=== PATIENT | male | born 1940 | race Caucasian/White ===

== ENCOUNTER → 2023-10-24 11:36 | Outpatient (REF) | payer MEDICARE, BC, SELFPAY ==
[2023-10-24 15:19] LABS: % Basophils 0.4 % (0-2); % Eosinophils 3.2 % (0-6); % Immature Granulocytes 0.5 % (0-0.5); % Lymphocytes 11.1 % (20.5-51.1); % Monocytes 8.3 % (1.7-9.3); % Neutrophils 76.5 % (42.2-75.2); Absolute Eosinophils 0.3 10^3/uL (0-0.7); Absolute Immature Granulocytes 0.1 10^3/uL (0-0.05); Absolute Lymphocytes 1.1 10^3/uL (1.2-3.4); Absolute Monocytes 0.8 10^3/uL (0.1-0.6); Absolute Neutrophils 7.8 10^3/uL (1.4-6.5); Hematocrit 36.6 % (39.0-52.0); Hemoglobin 12.4 g/dL (13.0-18.0); Mean Corp Hgb Conc. 33.9 g/dL (33.0-37.0); Mean Corpuscular Hgb 32.4 pg (27.0-31.0); Mean Corpuscular Volume 95.6 fL (80.0-94.0); Mean Platelet Volume 10.5 fL (7.4-10.4); Nucleated Red Blood Cells % 0 % (-); Platelet Count 290 10^3/uL (130-400); Red Blood Cell Count 3.83 10^6/uL (4.70-6.10); Red Cell Dist. Width 12.2 % (11.5-14.5); White Blood Cell Count 10.1 10^3/uL (4.8-10.8)
== END ==
LOC: HWLAB 11:36
PROVIDERS: ATTENDING PHYSICIAN Physician Assistant Medical; FAMILY PHYSICIAN Internal Medicine
DX: L08.9 Local infection of the skin and subcutaneous tissue, unspecified (principal); N17.9 Acute kidney failure, unspecified
CPT/HCPCS: 36415; 85025

== ENCOUNTER 2023-11-21 05:31 | Emergency (ER) | payer MEDICARE, BC, SELFPAY ==
[2023-11-21 05:38] VITALS: BP 130/58
--- NOTE | 2023-11-21 06:16 | ED.GENMED ---
History of Present Illness
General
Chief Complaint: Skin Problem
Time Seen by Provider: 11/21/23 06:13
Travel History
Have you had any contact with someone who has COVID-19?: No
Do you have any symptoms of coronavirus? Fever > 100 degrees, chills, cough, shortness of breath, sore throat, loss of taste or smell, muscle aches, or headache?: No
History of Present Illness
History of Present Illness:
HPI: Patient presents due to concerns at the site of spinal stimulator. This was originally placed by a pain management doctor in January 2023. He had some weeping at the site (midline lumbar region) this past May but says he was dismissed by a
'fill-in doctor' for the painter rough. That same doctor saw in September and again 'dismissed it'. He later saw his original physician who placed him on amoxicillin which helped for about a week. He then saw urgent care who placed him
on a 7-day course of doxycycline which helped about a month ago but now symptoms have returned. He denies any fevers.
EXAM:
GENERAL: Well appearing in no distress
HEENT: Moist oral mucosa
CARDIOVASCULAR: No murmurs, normal heart rate and rhythm, No chest wall tenderness
PULMONARY: No respiratory distress, breath sounds are clear and equal
ABDOMEN: Soft with no peritoneal signs, no tenderness
NEUROLOGIC: Excellent strength all extremities, no coordination deficits
PSYCHIATRIC: Appropriate mental status, normal insight and judgement
EXTREMITIES: Nontender, no edema, moves all extremities equally
SKIN: There is a surgical scar to the lumbar region just left of midline with no drainage or evidence of infection. There is a small pustule noted at the midline over the surgical scar with a scant amount of pus noted.
ED COURSE:
6:20 AM: I initially evaluated patient
NUMBER AND COMPLEXITY OF PROBLEMS ADDRESSED AT THE ENCOUNTER
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
� Acute Exacerbation and/or Progression of Chronic Illness: This is an acute but recurring problem
� Differential Diagnosis includes: Abscess, cellulitis,/surgical site infection
AMOUNT AND/OR COMPLEXITY OF DATA TO BE REVIEWED AND ANALYZED
� I performed an independent evaluation of and my interpretation is:
EKG:
CT:
X-rays:
Laboratory Studies: Wound culture was sent
Other:
� Review of other/old records: The patient was here in 2021 with rectal bleeding
� Clinical information was obtained by an independent historian: None needed
� Prescriptions/Medications Considered but not given:
� Further testing considered but not performed:
RISK OF COMPLICATIONS AND/OR MORBIDITY OR MORTALITY OF PATIENT MANAGEMENT
� Social determinants of health affecting care: Lives at home
� Discussion with other providers:
� Escalation of care including admission/observation vs risk of discharge considered: The patient has a relatively small area of infection (subcentimeter pustule) with scant amount of drainage that was able to be expressed. Will
place back on a longer course of doxycycline I encouraged him to follow-up with his original surgeon. I have also given him the contact information for a local infectious disease specialist. Wound culture sent.
Past History
Past History
ED Past Medical History: HTN and Other (diverticulitis)
ED Past Surgical History: Bowel resection and Orthopedic
Social History
Tobacco: Non-smoker
Alcohol: None
Drug: None
Personal:
Living: with family
Employment: Employed
Phy Exam
Physical Exam
Physical Exam:
See HPI
Course
Orders/Labs/Results
Orders:
Orders
11/21/23 06:28
Doxycycline [Vibramycin] 100 mg PO NOW STA
11/21/23 06:30
Wound Culture [Wound/Abscess/Other Culture] Urgent
CELESTE Source: Skin Surface
Specimen Description:
Vital Signs
Initial and Last Documented VS:
Initial Vital Signs
Temp Pulse Resp BP Pulse Ox
97.8 F 72 24 130/58 100
11/21/23 05:38 11/21/23 05:38 11/21/23 05:38 11/21/23 05:38 11/21/23 05:38
Last Documented Vital Signs
Temp Pulse Resp BP Pulse Ox
97.8 F 72 24 130/58 100
11/21/23 05:38 11/21/23 05:38 11/21/23 05:38 11/21/23 05:38 11/21/23 05:38
*Critical Care Note
Total Time (30-74mins, 75-104mins- exclusive of procedures): Not Applicable
ED Attending Note
-
Portions of this chart may have been created with voice recognition software.� Occasional wrong word or��sound alike� substitutions may have occurred due to the inherent limitations of voice recognition software.
Discharge Plan
Departure
Patient Disposition: Home (Routine Discharge)
Date of Disposition: 11/21/23
Time of Disposition: 06:31
Patient with high blood pressure during this ER visit?: Yes
Discharge Problem:
Pustule
Instructions: Skin Abscess
Prescriptions:
New
doxycycline hyclate 100 mg capsule
100 mg PO BID Qty: 28 0RF
No Action
omeprazole 20 MG capsule,delayed release(DR/EC)
20 mg PO DAILY
aspirin 81 MG tablet,delayed release (DR/EC)
81 mg PO DAILY
lorazepam 1 MG tablet
1 mg PO HSPRN PRN (Reason: anxiety/insomnia)
Patient Comments:
10/31/2019 patient filled #[id number] for 90 days on 10/07/2019
diclofenac sodium 75 mg Tablet,Delayed Release (Dr/Ec)
75 mg PO BID
doxazosin 4 mg Tablet
8 mg PO HS
multivitamin Tablet
Daily
nifedipine [Procardia XL] 30 mg Tablet Extended Release 24hr
30 mg PO DAILY
hydrocodone-acetaminophen 7.5-325 mg Tablet
1 tab PO Q6H PRN (Reason: pain)
ferrous [id number] conc Capsule
PO DAILY
Referrals:
Wilmer Blancas MD [Family Provider] -
Zeinab Lee MD [Active] - Follow up in 2-3 days
Activity Restrictions/Additional Instructions:
I recommend you also follow-up with the surgeon who did the initial procedure. I have given you the contact information for local infectious disease specialist�Dr. Lee. I sent a prescription for a 2-week course of doxycycline to your pharmacy in
[place]. Return here if worse.
Interventions
Interventions:
*Risk Screen - Suicide Last Done: 11/21/23 05:38
*Neglect/Abuse Screening Last Done: 11/21/23 05:38
[2023-11-21] MEDS: VIBRAMYCIN 100 MG PO (06:42)
== END 2023-11-21 07:00 | disposition home or self-care (01) ==
LOC: EMR 05:31
PROVIDERS: EMERGENCY PHYSICIAN Emergency Medicine; FAMILY PHYSICIAN Internal Medicine
DX: L08.9 Local infection of the skin and subcutaneous tissue, unspecified (principal); I10 Essential (primary) hypertension
CPT/HCPCS: 99283; 87070; 87205

== ENCOUNTER → 2024-01-10 06:33 | Outpatient (REF) | payer MEDICARE, BC, SELFPAY ==
[2024-01-10 10:02] LABS: % Basophils 0.6 % (0-2); % Eosinophils 2.6 % (0-6); % Immature Granulocytes 0.5 % (0-0.5); % Lymphocytes 16.8 % (20.5-51.1); % Monocytes 7.9 % (1.7-9.3); % Neutrophils 71.6 % (42.2-75.2); Absolute Basophils 0.1 10^3/uL (0-0.2); Absolute Eosinophils 0.2 10^3/uL (0-0.7); Absolute Immature Granulocytes 0.1 10^3/uL (0-0.05); Absolute Lymphocytes 1.6 10^3/uL (1.2-3.4); Absolute Monocytes 0.7 10^3/uL (0.1-0.6); Absolute Neutrophils 6.7 10^3/uL (1.4-6.5); Hematocrit 37.5 % (39.0-52.0); Hemoglobin 12.4 g/dL (13.0-18.0); Mean Corp Hgb Conc. 33.1 g/dL (33.0-37.0); Mean Corpuscular Volume 96.9 fL (80.0-94.0); Mean Platelet Volume 10.1 fL (7.4-10.4); Nucleated Red Blood Cells % 0 % (-); Platelet Count 285 10^3/uL (130-400); Red Blood Cell Count 3.87 10^6/uL (4.70-6.10); Red Cell Dist. Width 11.8 % (11.5-14.5); White Blood Cell Count 9.3 10^3/uL (4.8-10.8)
== END ==
LOC: HWLAB 06:33
PROVIDERS: ATTENDING PHYSICIAN Internal Medicine
DX: Z01.818 Encounter for other preprocedural examination (principal)
CPT/HCPCS: 36415; 85025

== ENCOUNTER → 2024-02-09 08:50 | Outpatient (REF) | payer MEDICARE, BC, SELFPAY ==
[2024-02-09 10:32] LABS: ALT (SGPT) 22 U/L (0-50); AST (SGOT) 36 U/L (17-59); Albumin 4.1 g/dl (3.5-5.0); Alkaline Phosphatase 84 U/L (38-126); Blood Urea Nitrogen 38 mg/dl (9-20); Calcium 9.7 mg/dl (8.4-10.2); Carbon Dioxide 23 mmol/L (22-30); Chloride 105 mmol/L (98-107); Glucose 95 mg/dl (70-99); Potassium 4.8 mmol/L (3.5-5.1); Sodium 139 mmol/L (135-145); Total Bilirubin 0.5 mg/dl (0.2-1.3); Total Protein 6.3 g/dl (6.3-8.2); eGFR > 60.00
[2024-02-09 11:03] LABS: Hepatitis B Surface Antigen Negative (Negative)
[2024-02-09 11:20] LABS: Hepatitis C Antibody Negative (Negative)
== END ==
LOC: HWLAB 08:50
PROVIDERS: ATTENDING PHYSICIAN Dermatology; FAMILY PHYSICIAN Internal Medicine
DX: Z79.899 Other long term (current) drug therapy (principal)
CPT/HCPCS: 36415; 80053; 86480; 86803; 87340

== ENCOUNTER → 2024-04-16 12:02 | Outpatient (REF) | payer MEDICARE, BC, SELFPAY ==
[2024-04-16 15:43] LABS: % Basophils 0.3 % (0-2); % Eosinophils 1.8 % (0-6); % Immature Granulocytes 0.5 % (0-0.5); % Lymphocytes 20.3 % (20.5-51.1); % Neutrophils 67.1 % (42.2-75.2); Absolute Eosinophils 0.1 10^3/uL (0-0.7); Absolute Lymphocytes 1.3 10^3/uL (1.2-3.4); Absolute Monocytes 0.7 10^3/uL (0.1-0.6); Absolute Neutrophils 4.4 10^3/uL (1.4-6.5); Hematocrit 33.2 % (39.0-52.0); Hemoglobin 11.3 g/dL (13.0-18.0); Mean Corpuscular Volume 94.1 fL (80.0-94.0); Mean Platelet Volume 10.8 fL (7.4-10.4); Nucleated Red Blood Cells % 0 % (-); Platelet Count 234 10^3/uL (130-400); Red Blood Cell Count 3.53 10^6/uL (4.70-6.10); Red Cell Dist. Width 13.7 % (11.5-14.5); White Blood Cell Count 6.5 10^3/uL (4.8-10.8)
[2024-04-16 15:50] LABS: Iron 76 ug/dl (49-181)
[2024-04-16 16:00] LABS: Percent Saturation 26 % (20-50); Total Iron Binding Capacity 286 ug/dl (261-462)
== END ==
LOC: HWLAB 12:02
PROVIDERS: ATTENDING PHYSICIAN Internal Medicine
DX: Z86.39 Personal history of other endocrine, nutritional and metabolic disease (principal); R42 Dizziness and giddiness; K62.5 Hemorrhage of anus and rectum
CPT/HCPCS: 36415; 83540; 83550; 85025

== ENCOUNTER → 2024-07-09 06:50 | Outpatient (REF) | payer MEDICARE, BC, SELFPAY ==
[2024-07-09 09:58] LABS: % Basophils 0.3 % (0-2); % Eosinophils 0.1 % (0-6); % Immature Granulocytes 0.5 % (0-0.5); % Lymphocytes 14.4 % (20.5-51.1); % Monocytes 7.3 % (1.7-9.3); % Neutrophils 77.4 % (42.2-75.2); Absolute Immature Granulocytes 0.1 10^3/uL (0-0.05); Absolute Lymphocytes 1.3 10^3/uL (1.2-3.4); Absolute Monocytes 0.7 10^3/uL (0.1-0.6); Absolute Neutrophils 7.2 10^3/uL (1.4-6.5); Hematocrit 38.3 % (39.0-52.0); Hemoglobin 12.7 g/dL (13.0-18.0); Mean Corp Hgb Conc. 33.2 g/dL (33.0-37.0); Mean Corpuscular Hgb 30.8 pg (27.0-31.0); Mean Corpuscular Volume 92.7 fL (80.0-94.0); Mean Platelet Volume 10.3 fL (7.4-10.4); Nucleated Red Blood Cells % 0 % (-); Platelet Count 275 10^3/uL (130-400); Red Blood Cell Count 4.13 10^6/uL (4.70-6.10); Red Cell Dist. Width 12.5 % (11.5-14.5); White Blood Cell Count 9.3 10^3/uL (4.8-10.8)
[2024-07-09 10:10] LABS: ALT (SGPT) 33 U/L (0-50); AST (SGOT) 33 U/L (17-59); Albumin 4.2 g/dl (3.5-5.0); Alkaline Phosphatase 60 U/L (38-126); Blood Urea Nitrogen 34 mg/dl (9-20); Calcium 9.8 mg/dl (8.4-10.2); Carbon Dioxide 28 mmol/L (22-30); Chloride 102 mmol/L (98-107); Glucose 100 mg/dl (70-99); HDL Cholesterol 63 mg/dl; Iron 98 ug/dl (49-181); LDL Cholesterol, Calculated 90 mg/dl; Potassium 5.8 mmol/L (3.5-5.1); Sodium 138 mmol/L (135-145); Total Bilirubin 0.5 mg/dl (0.2-1.3); Total Cholesterol 177 mg/dl (50-199); Total Protein 6.4 g/dl (6.3-8.2); Triglyceride 120 mg/dl (10-149); Very Low Density Lipoprotein 24 mg/dl (0-30); eGFR > 60.00
[2024-07-09 10:19] LABS: Percent Saturation 34 % (20-50); Total Iron Binding Capacity 286 ug/dl (261-462)
[2024-07-09 10:36] LABS: PSA, Total - Diagnostic 6.12 ng/ml (0.0-4.0)
== END ==
LOC: HWLAB 06:50
PROVIDERS: ATTENDING PHYSICIAN Internal Medicine
DX: E61.1 Iron deficiency (principal); Z00.01 Encounter for general adult medical examination with abnormal findings; I10 Essential (primary) hypertension; K57.31 Diverticulosis of large intestine without perforation or abscess with bleeding; E78.5 Hyperlipidemia, unspecified; R97.20 Elevated prostate specific antigen [PSA]
CPT/HCPCS: 36415; 80053; 80061; 83540; 83550; 84153; 85025

== ENCOUNTER → 2024-07-19 10:07 | Outpatient (REF) | payer MEDICARE, BC, SELFPAY | LOC: HWRAD 10:07 | PROVIDERS: ATTENDING PHYSICIAN Internal Medicine | DX: M54.2 Cervicalgia (principal) | CPT/HCPCS: 72050 ==

== ENCOUNTER → 2024-09-25 12:50 | Outpatient (REF) | payer MEDICARE, BC, SELFPAY | LOC: RAD 12:50 | PROVIDERS: ATTENDING PHYSICIAN Internal Medicine | DX: R09.89 Other specified symptoms and signs involving the circulatory and respiratory systems (principal) | CPT/HCPCS: 75571 ==

== ENCOUNTER → 2024-09-26 06:50 | Outpatient (REF) | payer MEDICARE, BC, SELFPAY ==
[2024-09-26 10:07] LABS: % Basophils 0.6 % (0-2); % Eosinophils 3.5 % (0-6); % Immature Granulocytes 0.3 % (0-0.5); % Monocytes 10.9 % (1.7-9.3); % Neutrophils 67.7 % (42.2-75.2); Absolute Eosinophils 0.2 10^3/uL (0-0.7); Absolute Lymphocytes 1.1 10^3/uL (1.2-3.4); Absolute Monocytes 0.7 10^3/uL (0.1-0.6); Absolute Neutrophils 4.3 10^3/uL (1.4-6.5); Hematocrit 36.9 % (39.0-52.0); Mean Corp Hgb Conc. 32.5 g/dL (33.0-37.0); Mean Corpuscular Hgb 31.8 pg (27.0-31.0); Mean Corpuscular Volume 97.9 fL (80.0-94.0); Mean Platelet Volume 10.3 fL (7.4-10.4); Nucleated Red Blood Cells % 0 % (-); Platelet Count 284 10^3/uL (130-400); Red Blood Cell Count 3.77 10^6/uL (4.70-6.10); Red Cell Dist. Width 12.6 % (11.5-14.5); White Blood Cell Count 6.4 10^3/uL (4.8-10.8)
[2024-09-26 10:49] LABS: ALT (SGPT) 26 U/L (0-50); AST (SGOT) 35 U/L (17-59); Albumin 4.2 g/dl (3.5-5.0); Alkaline Phosphatase 66 U/L (38-126); Blood Urea Nitrogen 43 mg/dl (9-20); Calcium 9.2 mg/dl (8.4-10.2); Carbon Dioxide 23 mmol/L (22-30); Chloride 104 mmol/L (98-107); Glucose 102 mg/dl (70-99); Potassium 5.3 mmol/L (3.5-5.1); Sodium 136 mmol/L (135-145); Total Bilirubin 0.6 mg/dl (0.2-1.3); Total Protein 6.4 g/dl (6.3-8.2); eGFR 54.85
[2024-09-28 08:47] LABS: Quantiferon Mitogen minus NIL 9.95 IU/mL; Quantiferon NIL 0.05 IU/mL; Quantiferon TB Gold Plus Negative (Negative)
== END ==
LOC: HWLAB 06:50
PROVIDERS: FAMILY PHYSICIAN Internal Medicine
DX: Z79.899 Other long term (current) drug therapy (principal)
CPT/HCPCS: 36415; 80053; 85025; 86480

== ENCOUNTER → 2024-09-30 11:17 | Outpatient (REF) | payer MEDICARE, BC, SELFPAY | LOC: DHCBC/DCA 11:17 | PROVIDERS: ATTENDING PHYSICIAN Nurse Practitioner Adult Health; FAMILY PHYSICIAN Internal Medicine | DX: R93.1 Abnormal findings on diagnostic imaging of heart and coronary circulation (principal) | CPT/HCPCS: 78452; 93017; A9500 ==

== ENCOUNTER → 2024-10-14 10:37 | Outpatient (REF) | payer MEDICARE, BC, SELFPAY | LOC: HWRAD 10:37 | PROVIDERS: ATTENDING PHYSICIAN Internal Medicine Cardiovascular Disease; FAMILY PHYSICIAN Internal Medicine | DX: R09.89 Other specified symptoms and signs involving the circulatory and respiratory systems (principal) | CPT/HCPCS: 93880 ==

== ENCOUNTER → 2024-12-02 10:16 | Outpatient (REF) | payer MEDICARE, BC, SELFPAY | LOC: RCS 10:16 | PROVIDERS: ATTENDING PHYSICIAN Internal Medicine Cardiovascular Disease; FAMILY PHYSICIAN Internal Medicine | DX: I31.39 Other pericardial effusion (noninflammatory) (principal); R09.89 Other specified symptoms and signs involving the circulatory and respiratory systems | CPT/HCPCS: 93306 ==

== ENCOUNTER 2024-12-05 04:06 | Inpatient (IN) | payer MEDICARE, BC, SELFPAY ==
[2024-12-04 23:07] VITALS: BP 170/75
--- NOTE | 2024-12-04 23:32 | ED.GENMED ---
History of Present Illness
<Isabel Harris PA-C - Last Filed: 12/05/24 11:29>
General
Chief Complaint: Abdominal Pain
Source: patient
Exam Limitations: none
Time Seen by Provider: 12/04/24 23:15
History of Present Illness
History of Present Illness:
84yoM with a history of perforated diverticulitis in 2013 s/p Ebenezer's procedure and subsequent colostomy reversal, prior bowel obstructions, and chronic back pain on [place] presenting with his daughter for evaluation of abdominal pain. Symptoms
began around 7 PM this evening after eating dinner. He reports significant pain throughout his upper abdomen and feels his abdomen is distended. Symptoms feel identical to his prior bowel obstructions. He reports nausea but has not vomited. Last
bowel movement was this evening a few hours ago. He has not passed any flatus in the past several hours. He denies any chest pain, shortness of breath, dysuria, fevers.
Past History
<Isabel Harris PA-C - Last Filed: 12/05/24 11:29>
Past History
ED Past Medical History: HTN and Other (diverticulitis)
ED Past Surgical History: Bowel resection and Orthopedic
Social History
Tobacco: Non-smoker
Alcohol: None
Drug: None
Personal:
Living: with family
Employment: Employed
Phy Exam
<Isabel Harris PA-C - Last Filed: 12/05/24 11:29>
Physical Exam
Physical Exam:
Appears uncomfortable, non-toxic
General Physical Exam
General Presentation: mild distress
General Skin: warm and dry
General Habitus: elderly
General Mental: alert
ENT Exam
ENT Exam: normocephalic
Pulmonary Exam
Pulmonary Exam: no respiratory distress
Gastrointestinal Exam
Gastrointestinal Exam: other (Hyperactive bowel sounds. Abdomen distended with generalized tenderness. +Voluntary guarding. )
Neurological Exam
Neurological Exam: alert
[place] Coma Scale
Eye Opening: Spontaneous
Verbal Response: Oriented
Motor Response: Obeys Commands
GCS Total Score: 15
Skin Exam
Skin Exam: normal color and warm/dry
Psychiatric Exam
Psychiatric Exam: normal mood/affect
<Isabel Angelo DO - Last Filed: 12/05/24 07:01>
[place] Coma Scale
GCS Total Score: 15
Course
<Isabel Harris PA-C - Last Filed: 12/05/24 11:29>
Orders/Labs/Results
Orders:
Orders
12/04/24 23:30
Complete Blood Count/With Diff Urgent
Comprehensive Metabolic Panel Urgent
Lactate Level [Lactic Acid] Urgent
Lipase Urgent
0.9% Sodium Chloride 1000 ml [Nss] 1,000 ml IV BOLUS
HYDROmorphone [Dilaudid] 0.5 mg IV NOW STA
Iohexol [Omnipaque] See Protocol PO NOW STA
Ondansetron Injectable [Zofran] 4 mg IV NOW STA
12/05/24 01:01
HYDROmorphone [Dilaudid] 0.5 mg IV NOW STA
Ondansetron Injectable [Zofran] 4 mg IV NOW STA
12/05/24 01:30
CT Abd/pel W Iv And Oral Contr Urgent
Reason For Exam: upper abd pain/distention, hx of SBO
12/05/24 01:53
HYDROmorphone [Dilaudid] 0.5 mg IV NOW STA
12/05/24 02:29
HYDROmorphone [Dilaudid] 0.5 mg IV NOW STA
12/05/24 02:30
0.9% Sodium Chloride 1000 ml [Nss] 1,000 ml IV 100 mls/hr
12/05/24 03:30
Admit/Transfer Patient As Directed
Co-Sign Provider:
Level of Care: Inpatient admission
Assign to:: Medical/Surgical
Physician / Group: hospitalist
Diagnosis: small bowel obstruction
Reason for Hospitalization: small bowel obstruction
Expected length of stay greater than two midnights?: Yes
ELOS- Estimated Length of Stay in days: 2
I certify the patient meets the requirements for IP care: Yes
PRN Pain Medication Management As Directed
May give lesser potent ordered pain med per pt: Yes
preference::
Protocol:: Medication orders for pain may be administered in a
manner that supports deferring to patient preference
when the pt is:
- Requesting an ordered lesser potent pain medication.
Least to most potent pain medications are defined
as: acetaminophen < NSAID < tramadol < opioids
(morphine, oxycodone, hydromorphone).
- Requesting a lesser dose of the same medication IF
ORDERED.
- Requesting a less intrusive route of administration
if both routes are prescribed by the provider (PO <
IV).
12/05/24 03:31
Code Status As Directed
Resuscitation Status: Full Code
12/05/24 04:14
Type And Crossmatch [Type+Screen] Stat
Lactic Acid Stat
PT/INR [Prothrombin Time] Stat
12/05/24 04:44
HYDROmorphone [Dilaudid] 1 mg IV Q4HPRN PRN
12/05/24 Breakfast
NPO
Allow oral meds: Yes
Allow clear liquids: No
12/05/24 08:51
Acetaminophen [Tylenol/Feverall] 650 mg RECTAL Q4HPRN PRN
HydrALAZINE [Apresoline] 10 mg IV Q6HPRN PRN
Lactated Ringers [Lr] 1,000 ml IV 100 mls/hr
Ondansetron Injectable [Zofran] 4 mg IV Q6HPRN PRN
Pantoprazole [Protonix IV] 40 mg IV DAILY
12/05/24 08:51
SURGICAL CONSULT Routine
Consulting Provider: Geronimo Varghese
Was physician already notified: Yes
Reason for consult: SBO, abdominal pain, ?bowel ischemia on CT, lactate 0.9
Activity As Directed
Activity Level: With Assistance
Gastrointestinal Tubes As Directed
To suction?: Yes
Type of suction: Low intermittent
Irrigate tube?: Yes
Irrigant: Tap Water
Frequency: Q4H
Amount in mls: 30
Irrigation Directions: Irrigate Q4H and PRN
Vital Signs As Directed
Frequency: Per unit guidelines
Pulse Ox/spot Check [RESP] Routine
Quantity: 1
DX Deep Vein Thrombosis Video Routine
12/05/24 18:00
Enoxaparin Sodium [Lovenox] 40 mg SC QPM
12/06/24 06:00
Basic Metabolic Panel IN AM
Complete Blood Count/No Diff IN AM
Magnesium IN AM
Abnormal Lab Results
12/05/24
00:10
WBC 12.3 H 10^3/uL
(4.8-10.8)
RBC 4.20 L 10^6/uL
(4.70-6.10)
Hct 38.2 L %
(39.0-52.0)
MCH 31.7 H pg
(27.0-31.0)
Abs Immat Gran (auto) 0.1 H 10^3/uL
(0-0.05)
Absolute Neuts (auto) 10.3 H 10^3/uL
(1.4-6.5)
Neutrophils % 83.1 H %
(42.2-75.2)
Lymphocytes % 9.4 L %
(20.5-51.1)
Carbon Dioxide 20 L mmol/L
(22-30)
BUN 51 H mg/dl
(9-20)
Creatinine 1.4 H mg/dL
(0.7-1.3)
Glucose 110 H mg/dl
(70-99)
12/05/24 00:10
12/05/24 00:10
Vital Signs
Initial and Last Documented VS:
Initial Vital Signs
Temp Pulse Resp BP Pulse Ox
98.1 F 61 24 170/75 100
12/04/24 23:07 12/04/24 23:07 12/04/24 23:07 12/04/24 23:07 12/04/24 23:07
Last Documented Vital Signs
Temp Pulse Resp BP Pulse Ox
98.7 F 81 17 118/62 98
12/05/24 10:15 12/05/24 11:15 12/05/24 11:15 12/05/24 11:15 12/05/24 11:15
<Aron Calhoun MD - Last Filed: 12/05/24 02:32>
Orders/Labs/Results
Orders:
Orders
12/04/24 23:30
Complete Blood Count/With Diff Urgent
Comprehensive Metabolic Panel Urgent
Lactate Level [Lactic Acid] Urgent
Lipase Urgent
0.9% Sodium Chloride 1000 ml [Nss] 1,000 ml IV BOLUS
HYDROmorphone [Dilaudid] 0.5 mg IV NOW STA
Iohexol [Omnipaque] See Protocol PO NOW STA
Ondansetron Injectable [Zofran] 4 mg IV NOW STA
12/05/24 01:01
HYDROmorphone [Dilaudid] 0.5 mg IV NOW STA
Ondansetron Injectable [Zofran] 4 mg IV NOW STA
12/05/24 01:30
CT Abd/pel W Iv And Oral Contr Urgent
Reason For Exam: upper abd pain/distention, hx of SBO
12/05/24 01:53
HYDROmorphone [Dilaudid] 0.5 mg IV NOW STA
12/05/24 02:29
HYDROmorphone [Dilaudid] 0.5 mg IV NOW STA
12/05/24 02:30
0.9% Sodium Chloride 1000 ml [Nss] 1,000 ml IV 100 mls/hr
12/05/24 03:30
Admit/Transfer Patient As Directed
Co-Sign Provider:
Level of Care: Inpatient admission
Assign to:: Medical/Surgical
Physician / Group: hospitalist
Diagnosis: small bowel obstruction
Reason for Hospitalization: small bowel obstruction
Expected length of stay greater than two midnights?: Yes
ELOS- Estimated Length of Stay in days: 2
I certify the patient meets the requirements for IP care: Yes
PRN Pain Medication Management As Directed
May give lesser potent ordered pain med per pt: Yes
preference::
Protocol:: Medication orders for pain may be administered in a
manner that supports deferring to patient preference
when the pt is:
- Requesting an ordered lesser potent pain medication.
Least to most potent pain medications are defined
as: acetaminophen < NSAID < tramadol < opioids
(morphine, oxycodone, hydromorphone).
- Requesting a lesser dose of the same medication IF
ORDERED.
- Requesting a less intrusive route of administration
if both routes are prescribed by the provider (PO <
IV).
12/05/24 03:31
Code Status As Directed
Resuscitation Status: Full Code
12/05/24 04:14
Type And Crossmatch [Type+Screen] Stat
Lactic Acid Stat
PT/INR [Prothrombin Time] Stat
12/05/24 04:44
HYDROmorphone [Dilaudid] 1 mg IV Q4HPRN PRN
12/05/24 Breakfast
NPO
Allow oral meds: Yes
Allow clear liquids: No
12/05/24 08:51
Acetaminophen [Tylenol/Feverall] 650 mg RECTAL Q4HPRN PRN
HydrALAZINE [Apresoline] 10 mg IV Q6HPRN PRN
Lactated Ringers [Lr] 1,000 ml IV 100 mls/hr
Ondansetron Injectable [Zofran] 4 mg IV Q6HPRN PRN
Pantoprazole [Protonix IV] 40 mg IV DAILY
12/05/24 08:51
SURGICAL CONSULT Routine
Consulting Provider: Geronimo Varghese
Was physician already notified: Yes
Reason for consult: SBO, abdominal pain, ?bowel ischemia on CT, lactate 0.9
Activity As Directed
Activity Level: With Assistance
Gastrointestinal Tubes As Directed
To suction?: Yes
Type of suction: Low intermittent
Irrigate tube?: Yes
Irrigant: Tap Water
Frequency: Q4H
Amount in mls: 30
Irrigation Directions: Irrigate Q4H and PRN
Vital Signs As Directed
Frequency: Per unit guidelines
Pulse Ox/spot Check [RESP] Routine
Quantity: 1
DX Deep Vein Thrombosis Video Routine
12/05/24 18:00
Enoxaparin Sodium [Lovenox] 40 mg SC QPM
12/06/24 06:00
Basic Metabolic Panel IN AM
Complete Blood Count/No Diff IN AM
Magnesium IN AM
Abnormal Lab Results
12/05/24
00:10
WBC 12.3 H 10^3/uL
(4.8-10.8)
RBC 4.20 L 10^6/uL
(4.70-6.10)
Hct 38.2 L %
(39.0-52.0)
MCH 31.7 H pg
(27.0-31.0)
Abs Immat Gran (auto) 0.1 H 10^3/uL
(0-0.05)
Absolute Neuts (auto) 10.3 H 10^3/uL
(1.4-6.5)
Neutrophils % 83.1 H %
(42.2-75.2)
Lymphocytes % 9.4 L %
(20.5-51.1)
Carbon Dioxide 20 L mmol/L
(22-30)
BUN 51 H mg/dl
(9-20)
Creatinine 1.4 H mg/dL
(0.7-1.3)
Glucose 110 H mg/dl
(70-99)
12/05/24 00:10
12/05/24 00:10
Vital Signs
Initial and Last Documented VS:
Initial Vital Signs
Temp Pulse Resp BP Pulse Ox
98.1 F 61 24 170/75 100
12/04/24 23:07 12/04/24 23:07 12/04/24 23:07 12/04/24 23:07 12/04/24 23:07
Last Documented Vital Signs
Temp Pulse Resp BP Pulse Ox
98.7 F 81 17 118/62 98
12/05/24 10:15 12/05/24 11:15 12/05/24 11:15 12/05/24 11:15 12/05/24 11:15
<Isabel Angelo, DO - Last Filed: 12/05/24 07:01>
Orders/Labs/Results
Orders:
Orders
12/04/24 23:30
Complete Blood Count/With Diff Urgent
Comprehensive Metabolic Panel Urgent
Lactate Level [Lactic Acid] Urgent
Lipase Urgent
0.9% Sodium Chloride 1000 ml [Nss] 1,000 ml IV BOLUS
HYDROmorphone [Dilaudid] 0.5 mg IV NOW STA
Iohexol [Omnipaque] See Protocol PO NOW STA
Ondansetron Injectable [Zofran] 4 mg IV NOW STA
12/05/24 01:01
HYDROmorphone [Dilaudid] 0.5 mg IV NOW STA
Ondansetron Injectable [Zofran] 4 mg IV NOW STA
12/05/24 01:30
CT Abd/pel W Iv And Oral Contr Urgent
Reason For Exam: upper abd pain/distention, hx of SBO
12/05/24 01:53
HYDROmorphone [Dilaudid] 0.5 mg IV NOW STA
12/05/24 02:29
HYDROmorphone [Dilaudid] 0.5 mg IV NOW STA
12/05/24 02:30
0.9% Sodium Chloride 1000 ml [Nss] 1,000 ml IV 100 mls/hr
12/05/24 03:30
Admit/Transfer Patient As Directed
Co-Sign Provider:
Level of Care: Inpatient admission
Assign to:: Medical/Surgical
Physician / Group: hospitalist
Diagnosis: small bowel obstruction
Reason for Hospitalization: small bowel obstruction
Expected length of stay greater than two midnights?: Yes
ELOS- Estimated Length of Stay in days: 2
I certify the patient meets the requirements for IP care: Yes
PRN Pain Medication Management As Directed
May give lesser potent ordered pain med per pt: Yes
preference::
Protocol:: Medication orders for pain may be administered in a
manner that supports deferring to patient preference
when the pt is:
- Requesting an ordered lesser potent pain medication.
Least to most potent pain medications are defined
as: acetaminophen < NSAID < tramadol < opioids
(morphine, oxycodone, hydromorphone).
- Requesting a lesser dose of the same medication IF
ORDERED.
- Requesting a less intrusive route of administration
if both routes are prescribed by the provider (PO <
IV).
12/05/24 03:31
Code Status As Directed
Resuscitation Status: Full Code
12/05/24 04:14
Type And Crossmatch [Type+Screen] Stat
Lactic Acid Stat
PT/INR [Prothrombin Time] Stat
12/05/24 04:44
HYDROmorphone [Dilaudid] 1 mg IV Q4HPRN PRN
12/05/24 Breakfast
NPO
Allow oral meds: Yes
Allow clear liquids: No
12/05/24 08:51
Acetaminophen [Tylenol/Feverall] 650 mg RECTAL Q4HPRN PRN
HydrALAZINE [Apresoline] 10 mg IV Q6HPRN PRN
Lactated Ringers [Lr] 1,000 ml IV 100 mls/hr
Ondansetron Injectable [Zofran] 4 mg IV Q6HPRN PRN
Pantoprazole [Protonix IV] 40 mg IV DAILY
12/05/24 08:51
SURGICAL CONSULT Routine
Consulting Provider: Geronimo Varghese
Was physician already notified: Yes
Reason for consult: SBO, abdominal pain, ?bowel ischemia on CT, lactate 0.9
Activity As Directed
Activity Level: With Assistance
Gastrointestinal Tubes As Directed
To suction?: Yes
Type of suction: Low intermittent
Irrigate tube?: Yes
Irrigant: Tap Water
Frequency: Q4H
Amount in mls: 30
Irrigation Directions: Irrigate Q4H and PRN
Vital Signs As Directed
Frequency: Per unit guidelines
Pulse Ox/spot Check [RESP] Routine
Quantity: 1
DX Deep Vein Thrombosis Video Routine
12/05/24 18:00
Enoxaparin Sodium [Lovenox] 40 mg SC QPM
12/06/24 06:00
Basic Metabolic Panel IN AM
Complete Blood Count/No Diff IN AM
Magnesium IN AM
Abnormal Lab Results
12/05/24
00:10
WBC 12.3 H 10^3/uL
(4.8-10.8)
RBC 4.20 L 10^6/uL
(4.70-6.10)
Hct 38.2 L %
(39.0-52.0)
MCH 31.7 H pg
(27.0-31.0)
Abs Immat Gran (auto) 0.1 H 10^3/uL
(0-0.05)
Absolute Neuts (auto) 10.3 H 10^3/uL
(1.4-6.5)
Neutrophils % 83.1 H %
(42.2-75.2)
Lymphocytes % 9.4 L %
(20.5-51.1)
Carbon Dioxide 20 L mmol/L
(22-30)
BUN 51 H mg/dl
(9-20)
Creatinine 1.4 H mg/dL
(0.7-1.3)
Glucose 110 H mg/dl
(70-99)
12/05/24 00:10
12/05/24 00:10
Vital Signs
Initial and Last Documented VS:
Initial Vital Signs
Temp Pulse Resp BP Pulse Ox
98.1 F 61 24 170/75 100
12/04/24 23:07 12/04/24 23:07 12/04/24 23:07 12/04/24 23:07 12/04/24 23:07
Last Documented Vital Signs
Temp Pulse Resp BP Pulse Ox
98.7 F 81 17 118/62 98
12/05/24 10:15 12/05/24 11:15 12/05/24 11:15 12/05/24 11:15 12/05/24 11:15
<Isabel Harris PA-C - Last Filed: 12/05/24 11:29>
MDM/Problems Addressed
Differential Diagnosis Includes:
84yoM here with acute abd pain that began after eating dinner this evening. Hx of SBO and this feels the same. +Nausea, no vomiting. He is hypertensive with otherwise normal vitals. Abdomen is distended with generalized tenderness and hyperactive
bowel sounds. Differential diagnosis includes but is not limited to: small bowel obstruction, perforated viscous, ischemic colitis, gastroenteritis, constipation
Initial ED plan: Check abdominal labs, lactate, and CT abdomen with IV/PO contrast.
Final disposition: White count elevated at 12.3. Lactate WNL. Patient requiring multiple doses of IV Dilaudid for pain throughout ED stay. CT images reviewed. There appears to be a SBO with dilated stomach and surrounding inflammatory changes per my
interpretation. Case signed out to Dr. Angelo pending formal radiology read. NG tube ordered.
<Isabel Angelo DO - Last Filed: 12/05/24 07:01>
*Critical Care Note
Total Time (30-74mins, 75-104mins- exclusive of procedures): 30
<Isabel Harris PA-C - Last Filed: 12/05/24 11:29>
Update Note
Update Note:
04:10
CT shows small bowel obstruction with multiple transition points and dilated, matted appearing bowel in the right upper quadrant concerning for closed-loop obstruction, concerning for ischemic bowel.
Patient continues with moderate generalized upper abdominal pain primarily right upper quadrant and epigastric, mildly distended abdomen, moderate guarding of right upper quadrant and epigastric region without rebound or rigidity.
Case discussed with general surgery, Dr. Varghese will be in to evaluate at bedside and plan for OR this morning.
Initial NG tube placed by nursing staff but patient promptly vomited and NG tube became dislodged. He is now resistant to have NG tube replaced.
<Isabel Angelo DO - Last Filed: 12/05/24 07:01>
Update Note
Update Note:
Labs reveal a leukocytosis with a WBC of 12.3. Lactate within normal limits. CT shows
Patient requiring multiple doses of IV Dilaudid during ED stay.
04:10
CT shows small bowel obstruction with multiple transition points and dilated, matted appearing bowel in the right upper quadrant concerning for closed-loop obstruction, concerning for ischemic bowel.
Patient continues with moderate generalized upper abdominal pain primarily right upper quadrant and epigastric, mildly distended abdomen, moderate guarding of right upper quadrant and epigastric region without rebound or rigidity.
Case discussed with general surgery, Dr. Varghese will be in to evaluate at bedside and plan for OR this morning.
Initial NG tube placed by nursing staff but patient promptly vomited and NG tube became dislodged. He is now resistant to have NG tube replaced.
ED Attending Note
<Isabel Harris PA-C - Last Filed: 12/05/24 11:29>
-
Portions of this chart may have been created with voice recognition software.� Occasional wrong word or��sound alike� substitutions may have occurred due to the inherent limitations of voice recognition software.
<Aron Calhoun MD - Last Filed: 12/05/24 02:32>
ED Attending Note
Patient seen and examined by attending physician: Yes
ED Attending Note:
I have seen and evaluated the patient with a [id number] encounter. I have spoken to the advance practicer provider and involved in the medical history, the physical exam, medical decision making.
Evaluation and management service: agree unless noted differently below.
Results interpretation: agree unless noted differently below.
Focused HPI: 84-year-old male with history as documented including multiple prior abdominal surgeries presents to the ER for evaluation of abdominal pain with nausea. He reports it feels similar to prior bowel obstructions. He says symptoms
started this evening and have been constant and worsening. Reports distention and pain associate with nausea but no vomiting. He did pass a bowel movement earlier today but nothing since.
Physical exam: Awake alert. Holding emesis bag. Hypertensive otherwise normal vitals. Abdomen distended and tympanic. Diffusely tender maximal periumbilical region and epigastrium. No peritoneal signs.
Medical Decision Makin-year-old male presents for evaluation of abdominal pain and distention, nausea similar to prior bowel obstructions. Vitals and exam as above. CBC shows slight leukocytosis, CMP shows elevated BUN to creatinine ratio.
Patient given IV fluids. Pain control. CT abdomen pelvis performed, report is pending�she does seem to have air-fluid levels concerning for small bowel obstruction. Suspect will need nasogastric tube and anticipate admission to the hospitalist
service pending final CT report.
Discharge Plan
Departure
Patient Disposition: Admit
Date of Disposition: 12/05/24
Time of Disposition: 03:08
Presentation/result/management discussed w/ accepting MD/DO: Hospitalist
Discharge Problem:
Small bowel obstruction
Interventions
Interventions:
*Risk Screen - Suicide Last Done: 12/04/24 23:07
*General Assessment Last Done: 12/05/24 05:24
*Neglect/Abuse Screening Last Done: 12/04/24 23:07
*ED- Fall Risk Assessment Last Done: 12/04/24 23:10
*ED COVID-19 Vaccine History Last Done: 12/04/24 23:10
*Nursing Disposition Last Done: 12/05/24 05:24
BL-[id number] Assessment Last Done: 12/05/24 01:20
Discharge Date and Time
Discharge Date/Time: 12/05/24 05:26
[2024-12-05] VITALS (27 sets, daily range): BP systolic 118–213; BP diastolic 59–99; BMI 22.8
[2024-12-05] MEDS: NSS 1000 IV ×4 (00:08→20:31)
[2024-12-05] MEDS: ZOFRAN 4 MG IV ×2 (00:09→01:07)
[2024-12-05] MEDS: DILAUDID 0.5 MG IV ×5 (00:09→23:41)
[2024-12-05] MEDS: OMNIPAQUE 50 ML PO (00:09)
[2024-12-05 00:37] LABS: % Basophils 0.4 % (0-2); % Eosinophils 1.7 % (0-6); % Immature Granulocytes 0.5 % (0-0.5); % Lymphocytes 9.4 % (20.5-51.1); % Monocytes 4.9 % (1.7-9.3); % Neutrophils 83.1 % (42.2-75.2); Absolute Basophils 0.1 10^3/uL (0-0.2); Absolute Eosinophils 0.2 10^3/uL (0-0.7); Absolute Immature Granulocytes 0.1 10^3/uL (0-0.05); Absolute Lymphocytes 1.2 10^3/uL (1.2-3.4); Absolute Monocytes 0.6 10^3/uL (0.1-0.6); Absolute Neutrophils 10.3 10^3/uL (1.4-6.5); Hematocrit 38.2 % (39.0-52.0); Hemoglobin 13.3 g/dL (13.0-18.0); Mean Corp Hgb Conc. 34.8 g/dL (33.0-37.0); Mean Corpuscular Hgb 31.7 pg (27.0-31.0); Nucleated Red Blood Cells % 0 % (-); Platelet Count 258 10^3/uL (130-400); Red Cell Dist. Width 12.6 % (11.5-14.5); White Blood Cell Count 12.3 10^3/uL (4.8-10.8)
[2024-12-05 00:39] LABS: Lactic Acid 0.9 mmol/L (0.7-2.0)
[2024-12-05 00:40] LABS: ALT (SGPT) 37 U/L (0-50); AST (SGOT) 35 U/L (17-59); Albumin 4.4 g/dl (3.5-5.0); Alkaline Phosphatase 81 U/L (38-126); Blood Urea Nitrogen 51 mg/dl (9-20); Calcium 10.1 mg/dl (8.4-10.2); Carbon Dioxide 20 mmol/L (22-30); Chloride 105 mmol/L (98-107); Estimated Creatinine Clearance 41 ml/min; Glucose 110 mg/dl (70-99); Lipase 131 U/L (23-300); Potassium 4.9 mmol/L (3.5-5.1); Sodium 135 mmol/L (135-145); Total Bilirubin 0.6 mg/dl (0.2-1.3); Total Protein 6.7 g/dl (6.3-8.2); eGFR 50.18
--- NOTE | 2024-12-05 03:18 | HPS.HSE ---
Family Physician
-
Family Physician: Devante Blancas
Chief Complaint
-
abdominal pain
History of Present Illness
This is a 84 y.o male with h/o hypertension, chronic back pain, diverticulitis complicated by perforated viscous s/p surgeries, h/o sbo/partial sbo presenting to the emergency department with abdominal pain.
Patient reports been in usual state of health up until acute onset of epigastric and diffuse abdominal pain after dinnertime at around 7 PM. Reports the pain radiated to the back and causing significant back pain. Reports nausea. He denies any
vomiting. His last bowel movement was within the last 24 hours and was nonbloody. Patient denies having any fevers or chills. He denies any respiratory symptoms. He reports similar episode few years ago. Documents indicate he was here in 2018
with a partial small bowel obstruction Notes indicate that he has had prior SBO's and surgeries before then.
In the Emergency Department the patient was afebrile, hypertensive to 188/80 with a pulse of 65 satting 100% on room air.
Had a white count of 12.3 otherwise hemoglobin and platelets were normal. Electrolytes were stable, BUN was slightly elevated at 51 creatinine was slightly increased at 1.4. Lactic acid was 0.9.
CT of the abdomen and pelvis with IV contrast shows matted appearance of loops of bowel within the right upper quadrant with abnormal hypoenhancement concerning for bowel ischemia. He had dilated loops of small bowel compatible with areas of
multiple transition points within the right upper quadrant and concerning for closed-loop obstruction. There was extensive mesenteric edema. No diverticulitis. No abdominal aneurysm.
Medical History
Past Medical History
Past Medical History: Reports HTN and Other (diverticular GIB )
Additional Past Medical History:
HTN and Other (diverticulitis)
Past Surgical History: Reports Bowel Resection
Additional Past Surgical History:
Bowel resection and Orthopedic
Social History
Tobacco: Non-smoker
Alcohol: None
Personal:
Living: With Family
Family History
Family History: Other (Bowel resection and Orthopedic)
Allergies / Home Medications
Allergies reflects when Allergies were last updated in [facility].
Home Medications with original date entered in [facility]
Allergy/Medication List:
Allergies
Allergy/AdvReac Type Severity Reaction Status Date / Time
erythromycin base Allergy Swelling Verified 12/04/24 23:07
Home Medications
Doxazosin Mesylate 4 mg 2 tablet at bedtime Orally Once a day for 90 days Jun, Active
Omeprazole Magnesium 20.6 (20 Base) MG 1 capsule Orally Once a day for 30 day(s) Active
NIFEdipine ER Osmotic Release 90 MG 1 tablet Oral Once a day for 90 days Active
Aspirin 81 MG 1 tablet Orally Once a day daily Active
Review of Systems
-
History Source: Patient
Constitutional: Reports No Symptoms
EENT: Reports No Symptoms
Respiratory: Reports No Symptoms
Cardiac: Reports No Symptoms
Abdomen/GI: Reports Abdominal Pain, Nausea and Vomiting
: Reports No Symptoms
Musculoskeletal: Reports No Symptoms
Skin: Reports No Symptoms
Neurological: Reports No Symptoms
Endocrine: Reports No Symptoms
Hematologic/Lymphatic: Reports No Symptoms
Psych: Reports No Symptoms
Physical Exam
Vital Signs
Vital Signs
Temp Pulse Resp BP Pulse Ox
98.1 F 65 20 198/79 100
12/04/24 23:07 12/05/24 01:13 12/05/24 01:13 12/05/24 02:00 12/05/24 01:48
Physical Exam
General: Appears in Distress and Pain
HEENT: NormoCephalic, Anicteric, Moist mucous membranes and Atraumatic
Respiratory: Clear
Cardiac: S1/S2 and Regular Rhythm
Breast: Deferred by me
GI: Soft, Normal Bowel Sounds, Tender and Distended
Rectal: Deferred by Provider
Genito-urinary: Deferred by me
Musculoskeletal: No Clubbing, No Cyanosis and No Edema
Skin: Warm
Neuro: AO x 3 and Nonfocal/grossly intact
Hematologic/Lymphatic: No Lymphadenopathy
Psych: Calm
Laboratory Results
-
12/05/24 00:10
12/05/24 00:10
Laboratory Results
Lactic Acid 0.9 mmol/L (0.7-2.0) 12/05/24 00:10
Total Bilirubin 0.6 mg/dl (0.2-1.3) 12/05/24 00:10
AST 35 U/L (17-59) 12/05/24 00:10
ALT 37 U/L (0-50) 12/05/24 00:10
Alkaline Phosphatase 81 U/L (38-126) 12/05/24 00:10
Lipase 131 U/L (23-300) 12/05/24 00:10
Data Reviewed
-
CT Scan: Report Reviewed by me
Lab Data: Labs Reviewed by me
Old Records: Reviewed
Impression/Plan
-
IMPRESSION:
84-year-old with past medical history of bowel resection secondary to diverticulitis, complicated by history of small bowel obstruction few years ago presents the emergency department with acute onset of abdominal pain abdominal distention without
vomiting but with nausea. He reports this is similar to his prior episode of SBO. On examination his abdomen remains soft with moderate degree of distention. There is mild tenderness to palpation. Pain appears to be out of proportion to the exam
as he continues to ride in pain despite 4 mg of Dilaudid given. CT scan shows dilated loops of small bowel in the right upper quadrant compatible with areas of multiple transition points in the right upper quadrant. However there is also a matted
appearance of the loops of bowel within the right upper quadrant with abnormal hypoenhancement which is concerning for bowel ischemia. He has a white count of 12.6. Electrolytes were stable and lactic acid was 0.9.
PLAN:
1. SBO -suspect SBO on basis of adhesion vs ischemia. Intractable abdominal pain.
- admit to med/surg
- NPO for now
- NG tube placement
- PPI IV, pain control and antiemetics
- IV fluids w/ LR
- repeat lactic acid in 4 hrs
- type and screen, INR
- surgery consulted, Dr Varghese taking patient to OR tonight
2. HTN
- while NPO, IV hydralazine prn
holding aspirin, doxazosin and nifedipine
DVT PPX - lovenox sq
Code status - full code
[2024-12-05 04:37] LABS: INR 1.02; PT 13.9 Sec (11.4-14.6)
[2024-12-05] MEDS: DILAUDID 1 MG IV (05:01)
--- NOTE | 2024-12-05 05:02 | CON.GS ---
Medical History
-
Chief Complaint: Abdominal pain, nausea vomiting
History of Present Illness:
Patient is an 84-year-old male with a past abdominal surgical history including bilateral inguinal herniorrhaphy, Ebenezer procedure for perforated diverticulitis in April 2013, subsequent reversal of colostomy August 2013 followed by takeback
and washout of multiple intra-abdominal infected hematomas. Patient states he has had multiple small bowel obstructions in the past since. Most recent colonoscopy 07/20/2022: Patent anastomosis, terminal ileum normal, diverticulosis throughout the
colon.
He was in his usual baseline state of health until yesterday evening after having salmon for dinner he developed the acute onset of abdominal pain, distention and nausea followed by vomiting. Due to the severity of pain it prompted emergency
department evaluation. Bowels have been moving regularly up until this acute event. Pain continues but has begun to improve after getting multiple recurrent doses of Dilaudid in the emergency department.
Past Medical History
Past Medical History: Other (GERD, osteoarthritis, ophthalmic migraine, BPH, DJD, bilateral hearing loss, hypertension, hyperlipidemia, Raynaud's, vertigo)
Past Surgical History: Other (Bilateral inguinal hernia repairs, Ebenezer procedure with colostomy reversal, bilateral knee replacements, left shoulder replacement, multiple ankle and foot surgeries, loop implant, spinal cord stimulator,)
Social History
Tobacco: Non-Smoker
Alcohol: Occasional
Personal:
Living: With Family
Family History
Family History: Reviewed & Not Pertinent
Allergies / Home Medications
Allergy/AdvReac Type Severity Reaction Status Date / Time
erythromycin base Allergy Swelling Verified 12/04/24 23:07
�Medication �Instructions �Recorded �Confirmed �Type
omeprazole 20 mg capsule,delayed 20 mg PO DAILY Gastrointestinal 04/26/17 06/01/23 History
release issue
aspirin 81 mg tablet,delayed 81 mg PO DAILY Blood clot 06/10/19 08/03/23 History
release prevention/tx
lorazepam 1 mg tablet 1 mg PO HSPRN PRN anxiety/insomnia 06/10/19 08/03/23 History
diclofenac sodium 75 mg 75 mg PO BID 08/03/22 08/03/23 History
tablet,delayed release
doxazosin 4 mg tablet 8 mg PO HS 06/01/23 08/03/23 History
ferrous [id number] conc cap PO DAILY 08/03/23 History
capsule
hydrocodone 7.5 mg-acetaminophen 1 tab PO Q6H PRN pain 08/03/23 08/03/23 History
325 mg tablet
multivitamin tab Daily 08/03/23 History
nifedipine 30 mg tablet,extended 30 mg PO DAILY 08/03/23 08/03/23 History
release 24 hr (Procardia XL)
doxycycline hyclate 100 mg capsule 100 mg PO BID #28 caps 11/21/23 Rx
Review of Systems
-
History Source: Patient
All other systems: Negative unless noted
A 10 point review of systems was completed, and was negative except as per HPI.
Physical Exam
Vital Signs
Temp Pulse Resp BP Pulse Ox
98.6 F 58 15 213/71 98
12/05/24 04:42 12/05/24 04:45 12/05/24 04:45 12/05/24 04:41 12/05/24 04:45
12/03/24 12/04/24 12/05/24
06:59 06:59 06:59
Actual Weight 72.1 kg
Body Mass Index (BMI) 22.8
Lab Results
12/05/24 00:10
12/05/24 00:10
WBC 12.3 10^3/uL (4.8-10.8) H 12/05/24 00:10
Hgb 13.3 g/dL (13.0-18.0) 12/05/24 00:10
Hct 38.2 % (39.0-52.0) L 12/05/24 00:10
Plt Count 258 10^3/uL (130-400) 12/05/24 00:10
Abs Immat Gran (auto) 0.1 10^3/uL (0-0.05) H 12/05/24 00:10
Neutrophils % 83.1 % (42.2-75.2) H 12/05/24 00:10
Physical Exam
General: Well Developed and No Apparent Distress (But acutely ill-appearing)
HEENT: Normocephalic, Anicteric and Moist Mucous Membranes
Respiratory: Non Labored Respirations
Cardiac: Regular Rhythm
GI: Soft, Tender (Tenderness to palpation greatest centrally. Some voluntary guarding on palpation. No rigidity. No rebound tenderness. Multiple surgical laparotomy scars.) and Distended
Neuro: AO x 3 and Nonfocal/Grossly Intact
Psych: Calm
Data Reviewed
-
CT Scan: Image Personally Visualized and interpreted, Report Reviewed by me, Discussed with Physician and Discussed with Patient
Labs: Labs Reviewed by me, Discussed with Physician and Discussed with Patient
Assessment / Plan
-
Assessment: 84-year-old male presenting with acute small bowel obstruction and CT abdomen pelvis imaging concerning for possible closed-loop component as there appeared to be at least 2 transition points in the right hemiabdomen, segmental region of
small bowel wall thickening and surrounding edema inflammatory changes.
Discussed with patient radiographic findings concerning for possible bowel compromise or immediate threat in the setting of a suspected closed-loop small bowel obstruction. In the circumstances we discussed the indications for rather prompt or
urgent surgical intervention.
The anticipated operative procedure would be an exploratory laparotomy, lysis of adhesions, possible bowel resection. This was discussed in detail with the patient including the operative technique, potential operative findings and their
management, alternative treatment options, benefits and risk such as but not limited to bleeding requiring transfusion, infectious and wound related complications, iatrogenic injury to surrounding viscera. We discussed the typical postoperative
recovery pending operative findings including the need for postoperative NG tube decompression, bowel recovery and potential for lengthy hospitalization.
Any of the patient's concerns or questions were fully addressed and informed consent was confirmed.
Plan: OR team is currently setting up for the outlined procedure
Continue IV fluids and supportive care
[facility] on-call to the OR
--- NOTE | 2024-12-05 05:13 | W.SUR.PREOP ---
Pre-Operative Surgical Note
-
I have examined this patient prior to the performance of the scheduled procedure.
The patient's condition is unchanged from the time of the current History and
Physical and the patient is able to undergo the scheduled procedure.
--- NOTE | 2024-12-05 08:54 | W.IMMPOSTOP ---
Addendum entered and electronically signed by Geronimo Varghese MD 12/06/24 15:47:
#[id number]
Original Note:
Surgical Immed Post Op Note
-
Primary Surgeon: Geronimo Varghese MD
Assisting Surgeon: Courtney CRANE
Pre-op Diagnosis: Small bowel obstruction; possible closed-loop, possible ischemia
Post-op Diagnosis: Closed loop small bowel obstruction with ischemia
Procedure Performed: Exploratory laparotomy, extensive lysis of adhesions (2 hours of operative time), small bowel resection
Anesthesia Type: GETA +0.25% Marcaine
Specimen / Cultures: Segment of ischemic small bowel (approximately 16 cm)
Estimated Blood Loss: 26 mL
Complications: None immediate
Operative Findings: Essentially frozen abdomen with extensive small bowel and omental adhesions. Within these adhesions there was a closed-loop small bowel obstruction in the right hemiabdomen with resultant advanced bowel ischemia but no
perforation. Complete adhesiolysis performed from ligament of Treitz through terminal ileum encompassing 2 hours of operative time. Subsequent small bowel resection performed after complete adhesiolysis as closed-loop segment of small bowel
remained quite hemorrhagic and edematous with ischemic changes. This was within the proximal ileum, approximately 16 cm resected. Stapled [id number]-st-aonk antiperistaltic anastomosis; Aidan technique; DAVID 80 purple stapler x 2. Seprafilm placed
in the pelvis and under midline laparotomy. NG tube positioning confirmed intraoperatively.
Patient's updated postoperatively via phone call. Discussed operative procedure, anticipated postoperative hospitalization and care. Any questions were confirmed to be fully addressed/answered.
[2024-12-05] MEDS: OFIRMEV IV ×2 (13:05→18:06)
[2024-12-05] MEDS: PROTONIX IV 40 MG IV (13:05)
[2024-12-05] MEDS: NSS (PRESERVATIVE FREE) 10 ML IV (13:06)
[2024-12-05] MEDS: NSS IV (17:29)
[2024-12-05] MEDS: CHLORASEPTIC/SORE THROAT SPRAY 1 SPRAY PO (23:48)
[2024-12-06] MEDS: OFIRMEV 100 IV ×2 (00:02→06:01)
[2024-12-06] MEDS: NSS 1000 IV ×2 (06:03→15:53)
[2024-12-06 07:20] VITALS: BP 159/70
[2024-12-06 07:46] LABS: Hematocrit 37.1 % (39.0-52.0); Hemoglobin 12.8 g/dL (13.0-18.0); Mean Corp Hgb Conc. 34.5 g/dL (33.0-37.0); Mean Corpuscular Hgb 32.2 pg (27.0-31.0); Mean Corpuscular Volume 93.2 fL (80.0-94.0); Mean Platelet Volume 10.2 fL (7.4-10.4); Platelet Count 224 10^3/uL (130-400); Red Blood Cell Count 3.98 10^6/uL (4.70-6.10); Red Cell Dist. Width 13.1 % (11.5-14.5); White Blood Cell Count 10.7 10^3/uL (4.8-10.8)
[2024-12-06] MEDS: NSS (PRESERVATIVE FREE) 10 ML IV (07:58)
[2024-12-06] MEDS: PROTONIX IV 40 MG IV (08:02)
[2024-12-06 08:29] LABS: Blood Urea Nitrogen 37 mg/dl (9-20); Carbon Dioxide 21 mmol/L (22-30); Chloride 106 mmol/L (98-107); Estimated Creatinine Clearance 48 ml/min; Glucose 119 mg/dl (70-99); Magnesium 2.2 mg/dl (1.6-2.3); Potassium 4.6 mmol/L (3.5-5.1); Sodium 137 mmol/L (135-145); eGFR > 60.00
--- NOTE | 2024-12-06 09:10 | W.PN.GS2 ---
Addendum entered and electronically signed by Geronimo Varghese MD 12/06/24 14:50:
Patient seen and examined. Denies any significant postoperative abdominal/incisional pain.
Occasional mild nausea. States he has passed flatus a few times but not regularly.
Still feels bloated/distended.
AFVSS
NAD AAOx3
ABD: Distended but soft, tympanitic, mild incisional tenderness. Incision dressing clean without spotting or drainage.
NG tube with bilious contents in tubing and canister.
A/P: POD #1 status post ex lap, (extensive/complete) lysis of adhesions and small bowel resection for high-grade closed-loop SBO with localized bowel ischemia
Overall doing well postoperatively.
Continue with IV fluids
Maintain NG tube decompression until distention subsides, NG tube outputs become nonbilious and robust signs of true GI function
Pantoprazole while NG tube in place
Lovenox for VTE prophylaxis
Has not utilized narcotics today; will reorder IV Tylenol as needed in case postoperative analgesics requested
Original Note:
Today's Communication / Plan
-
NGT/IVF
Assessment / Plan
-
84 yo male presenting with closed loop sbo with ischemia now POD #1 Ex lap, richi and SBR
AFVSS
Labs stable, leukocytosis resolved
Beginning to pass flatus, NGT still with high, bilious outputs
--Continue NGT to LIWS
--Continue NPO/IVF
--Analgesics prn
--OOB/Ambulate
--IS while awake
--SCDs/Lovenox for VTE ppx
Medical management as per primary team
Subjective Data
-
Date of Service: December 06, 2024
Patient seen and examined at bedside. Denies n/v. OOB to chair sitting by the window. Pain minimal. Passing some flatus today, no BM as of yet.
Objective Data
-
Intake and Output
12/05/24 12/06/24 12/07/24
06:59 06:59 06:59
Intake Total 3232 / 3232
Output Total 2900 / 2900
Balance 332 / 332
Intake:
IV fluids (Total) 2852 / 2852
Normosol 800 / 800
IV piggybacks 210 / 210
Amount instilled into GI Tube ( 170 / 170
Total)
Baker Sump 170 / 170
Output:
Gastrointestinal tube output ( 112 / 1125
Total)
Baker Sump 1125 / 1125
Urine, Alonso 177 / 177
Vital Signs
Temp Pulse Resp BP Pulse Ox
98.4 F 76 18 159/70 96
12/06/24 07:20 12/06/24 07:20 12/06/24 07:20 12/06/24 07:20 12/06/24 07:20
Lab Results
12/06/24 07:15
12/06/24 07:15
Calcium 8.0 mg/dl (8.4-10.2) L D 12/06/24 07:15
Magnesium 2.2 mg/dl (1.6-2.3) 12/06/24 07:15
Total Bilirubin 0.6 mg/dl (0.2-1.3) 12/05/24 00:10
AST 35 U/L (17-59) 12/05/24 00:10
ALT 37 U/L (0-50) 12/05/24 00:10
Alkaline Phosphatase 81 U/L (38-126) 12/05/24 00:10
Total Protein 6.7 g/dl (6.3-8.2) 12/05/24 00:10
Albumin 4.4 g/dl (3.5-5.0) 12/05/24 00:10
Physical Exam
-
NAD
ABD soft, mild distention, expected incisional tenderness, NGT with bilious outputs
Incision with intact dressing
Patient has a alonso catheter: Yes
Patient has a central line: No
[2024-12-06 11:22] VITALS: BP 170/83
--- NOTE | 2024-12-06 13:10 | W.PN.HOSP.TC ---
Today's Communication/Plan
-
Continue with IV fluids. NG tube per surgery.
Follow blood pressures on as needed hydralazine.
Assessment / Plan
Assessment / Plan
Acute small bowel obstruction with closed-loop component status post emergent surgery and bowel resection.
NG tube in place. Hypoactive bowel sounds. Pain under control.
Continue with postop care per surgery.
On IV fluids.
Hypertension-patient on doxazosin and nifedipine at home. Currently NPO. Continue with as needed hydralazine.
DVT prophylaxis-Lovenox
Anticipated Discharge: > 48 hours
Subjective/Interval History
-
Date of Service: December 06, 2024
Patient with NG tube in place still. Denies any nausea. Passed gas once today. Abdominal pain okay.
Denies shortness of breath or chest pain. No fever chills.
Objective Data
-
Labs:
Laboratory Results
12/06/24
07:15
WBC 10.7
Hgb 12.8 L
Hct 37.1 L
Plt Count 224
Sodium 137
Potassium 4.6
Chloride 106
Carbon Dioxide 21 L
BUN 37 H
Creatinine 1.2
Glucose 119 H
Calcium 8.0 L D
Vital Signs:
Vital Signs
Temp Pulse Resp BP Pulse Ox
98.5 F 72 18 170/83 99
12/06/24 11:22 12/06/24 11:22 12/06/24 11:22 12/06/24 11:22 12/06/24 11:22
I&O
12/05/24 12/06/24 12/07/24
06:59 06:59 06:59
Intake Total 3232 / 3232
Output Total 2900 / 2900 300 / 300
Balance 332 / 332 -300 / -300
Physical Exam
-
General: Comfortable
Respiratory: Clear to Auscultation and Non Labored Respirations; Negative Accessory Resp Muscle Use
Cardiac: Regular Rhythm and S1/S2
GI: Soft; Negative Normal Bowel Sounds (hypoactive)
Neuro: AO x 3
Psych: Calm
Data Reviewed
-
Labs: Labs Reviewed by me
[2024-12-06 15:24] VITALS: BP 167/78
[2024-12-06] MEDS: LOVENOX 40 MG SC (18:24)
[2024-12-06 23:00] VITALS: BP 171/73
[2024-12-07] MEDS: NSS 1000 IV ×3 (00:31→17:19)
[2024-12-07 07:35] VITALS: BP 152/78
[2024-12-07 08:21] LABS: Hematocrit 29.6 % (39.0-52.0); Hemoglobin 9.7 g/dL (13.0-18.0); Mean Corp Hgb Conc. 32.8 g/dL (33.0-37.0); Mean Corpuscular Hgb 31.5 pg (27.0-31.0); Mean Corpuscular Volume 96.1 fL (80.0-94.0); Mean Platelet Volume 10.3 fL (7.4-10.4); Platelet Count 162 10^3/uL (130-400); Red Blood Cell Count 3.08 10^6/uL (4.70-6.10); White Blood Cell Count 9.4 10^3/uL (4.8-10.8)
[2024-12-07] MEDS: NSS (PRESERVATIVE FREE) 10 ML IV (08:50)
[2024-12-07] MEDS: PROTONIX IV 40 MG IV (08:50)
--- NOTE | 2024-12-07 09:53 | PTCARENOTE ---
CRITICAL VALUE drop in Hgb from 12.8 to 9.7; Dr. Herndon and MENG Ureña notified.
[2024-12-07 11:19] LABS: Hematocrit 36.3 % (39.0-52.0); Mean Corp Hgb Conc. 33.1 g/dL (33.0-37.0); Mean Corpuscular Hgb 31.8 pg (27.0-31.0); Mean Corpuscular Volume 96.3 fL (80.0-94.0); Mean Platelet Volume 9.9 fL (7.4-10.4); Platelet Count 206 10^3/uL (130-400); Red Blood Cell Count 3.77 10^6/uL (4.70-6.10); Red Cell Dist. Width 12.9 % (11.5-14.5); White Blood Cell Count 12.5 10^3/uL (4.8-10.8)
[2024-12-07 11:22] LABS: Blood Urea Nitrogen 24 mg/dl (9-20); Calcium 8.1 mg/dl (8.4-10.2); Carbon Dioxide 25 mmol/L (22-30); Chloride 110 mmol/L (98-107); Estimated Creatinine Clearance 58 ml/min; Glucose 132 mg/dl (70-99); Potassium 3.8 mmol/L (3.5-5.1); Sodium 140 mmol/L (135-145); eGFR > 60.00
--- NOTE | 2024-12-07 12:49 | W.PN.HOSP.TC ---
Today's Communication/Plan
-
Advance diet per surgery
Start on as nifedipine for blood pressure management.
Assessment / Plan
Assessment / Plan
Acute small bowel obstruction with closed-loop component status post emergent surgery and bowel resection.
NG tube is out on clear liquids. Continue with the diet per surgery.
Hypertension-patient on doxazosin and nifedipine at home. Reintroduced nifedipine and if continued need and doxazosin.
DVT prophylaxis-Lovenox
Anticipated Discharge: 24 - 48 hours
Subjective/Interval History
-
Date of Service: December 07, 2024
Patient NG tube is out and is on clear liquids. Tolerating them okay. Taking it easy. No nausea. Passing gas. No bowel movement yet.
Denies fever chills.
Denies any shortness of breath or chest pain.
Objective Data
-
Labs:
Laboratory Results
12/07/24 12/07/24
06:52 10:55
WBC 9.4 12.5 H
Hgb 9.7 L D 12.0 L D
Hct 29.6 L 36.3 L
Plt Count 162 D 206 D
Sodium Cancelled 140
Potassium Cancelled 3.8
Chloride Cancelled 110 H
Carbon Dioxide Cancelled 25
BUN Cancelled 24 H
Creatinine Cancelled 1.0
Glucose Cancelled 132 H
Calcium Cancelled 8.1 L
Vital Signs:
Vital Signs
Temp Pulse Resp BP Pulse Ox
97.7 F 72 16 152/78 97
12/07/24 07:35 12/07/24 07:35 12/07/24 07:35 12/07/24 07:35 12/07/24 07:35
I&O
12/06/24 12/07/24 12/08/24
06:59 06:59 06:59
Intake Total 3232 / 3232 1410 / 1410 30 / 30
Output Total 2900 / 2900 2049 525 / 525
Balance 332 / 332 -640 / -640 -495 / -495
Review of Systems
-
Constitutional: Denies Fever
Respiratory: Denies Trouble Breathing
Cardiac: Denies Chest Pain
Neuro: Denies Dizzy
Physical Exam
-
General: No Apparent Distress
HEENT: Moist Mucous Membranes
Respiratory: Clear to Auscultation
Cardiac: Regular Rhythm, S1/S2 and Murmur; Negative Tachycardic
GI: Soft and Normal Bowel Sounds
Neuro: AO x 3
Psych: Calm
Data Reviewed
-
Labs: Labs Reviewed by me
[2024-12-07] MEDS: PROCARDIA XL (EXTENDED RELEASE) 30 MG PO (13:11)
--- NOTE | 2024-12-07 14:38 | CM ---
Initial assessment completed
Pt reports he lives with his in a split-level home; 5 K[address], 5 steps to 2nd fl
Independent at baseline, ambulates without device, drives
DME - single point cane
SNF - denies past hs
HH - has in past, unable to recall agency
Has ride at d/c
PCP - Devante Blancas
Pharm - [facility]
Plan - anticipate home no needs when medically ready
[2024-12-07 15:00] VITALS: BP 158/72
[2024-12-07 16:00] VITALS: BMI 22.8
--- NOTE | 2024-12-07 16:15 | W.PN.GS2 ---
Addendum entered and electronically signed by Torin Nieves MD 12/07/24 16:25:
I saw and examined the patient.
The Home Health Caregiver's note was reviewed and I agree with the note.
Comment: Improving. Lots of flatus. Exam approp, incision cdi. DC NGT, trial cld
Original Note:
Today's Communication / Plan
-
D/C NGT, start CLD
Assessment / Plan
-
84 yo male presenting with closed loop sbo with ischemia now POD #2 Ex lap, richi and SBR
AFVSS
Doing well post operatively
Labs repeated this am d/t dilution: h/h stable on repeat, mild leukocytosis.
NGT outputs minimal, passing flatus
Voiding well since alonso removed
--D/C NGT and start on CLD
--Continue IVF until good po intake
--Analgesics prn
--OOB/Ambulate
--IS while awake
--SCDs/Lovenox for VTE ppx
Medical management as per primary team
Subjective Data
-
Date of Service: December 07, 2024
Patient seen and examined at bedside with Dr Nieves earlier this am around 0915. Denies n/v. Passing a large amount of flatus. Pain minimal. Voiding since alonso removed.
Objective Data
-
Intake and Output
12/06/24 12/07/24 12/08/24
06:59 06:59 06:59
Intake Total 3232 / 3232 1410 / 1410 30 / 30
Output Total 2900 / 2900 2049 / 2049 525 / 525
Balance 332 / 332 -640 / -640 -495 / -495
Intake:
IV fluids (Total) 2852 / 2852 1320 / 1320
Normosol 800 / 800
IV piggybacks 210 / 210
Amount instilled into GI Tube ( 170 / 170 90 / 90 30 / 30
Total)
Maynard Sump 170 / 170 90 / 90 30 / 30
Output:
Gastrointestinal tube output ( 1125 / 1125 150 / 150 200 / 200
Total)
Maynard Sump 1125 / 1125 150 / 150 200 / 200
Urine, Alonso 1775 / 1775 1900 / 1900
Urine, Voided 325 / 325
Vital Signs
Temp Pulse Resp BP Pulse Ox
97.7 F 72 16 152/78 97
12/07/24 07:35 12/07/24 07:35 12/07/24 07:35 12/07/24 07:35 12/07/24 07:35
Lab Results
12/07/24 10:55
12/07/24 10:55
Calcium 8.1 mg/dl (8.4-10.2) L 12/07/24 10:55
Magnesium 2.2 mg/dl (1.6-2.3) 12/06/24 07:15
Total Bilirubin 0.6 mg/dl (0.2-1.3) 12/05/24 00:10
AST 35 U/L (17-59) 12/05/24 00:10
ALT 37 U/L (0-50) 12/05/24 00:10
Alkaline Phosphatase 81 U/L (38-126) 12/05/24 00:10
Total Protein 6.7 g/dl (6.3-8.2) 12/05/24 00:10
Albumin 4.4 g/dl (3.5-5.0) 12/05/24 00:10
Physical Exam
-
NAD
ABD soft, ND, expected incisional tenderness, NGT with light outputs
Incision with intact dressing
Patient has a alonso catheter: No
Patient has a central line: No
[2024-12-07] MEDS: LOVENOX 40 MG SC (17:17)
[2024-12-07 23:30] VITALS: BP 131/54
[2024-12-08 07:13] LABS: Hematocrit 30.9 % (39.0-52.0); Hemoglobin 10.5 g/dL (13.0-18.0); Mean Corpuscular Volume 94.2 fL (80.0-94.0); Mean Platelet Volume 10.7 fL (7.4-10.4); Platelet Count 195 10^3/uL (130-400); Red Blood Cell Count 3.28 10^6/uL (4.70-6.10); Red Cell Dist. Width 12.7 % (11.5-14.5); White Blood Cell Count 9.2 10^3/uL (4.8-10.8)
[2024-12-08 07:17] VITALS: BP 128/54
[2024-12-08 08:15] LABS: Blood Urea Nitrogen 18 mg/dl (9-20); Calcium 7.7 mg/dl (8.4-10.2); Carbon Dioxide 26 mmol/L (22-30); Chloride 108 mmol/L (98-107); Estimated Creatinine Clearance 73 ml/min; Glucose 102 mg/dl (70-99); Potassium 4.1 mmol/L (3.5-5.1); Sodium 135 mmol/L (135-145); eGFR > 60.00
[2024-12-08] MEDS: PROTONIX IV 40 MG IV (09:26)
[2024-12-08] MEDS: NSS (PRESERVATIVE FREE) 10 ML IV (09:27)
[2024-12-08] MEDS: PROCARDIA XL (EXTENDED RELEASE) 30 MG PO (09:27)
--- NOTE | 2024-12-08 10:21 | W.PN.HOSP.TC ---
Today's Communication/Plan
-
Advance diet per cardiology
Assessment / Plan
Assessment / Plan
Acute small bowel obstruction with closed-loop component status post emergent surgery and bowel resection.
NG tube is out on clear liquids. Tolerating clear liquids. Advance diet diet per surgery.
Hypertension-patient on doxazosin and nifedipine at home. Reintroduced nifedipine and if continued need and doxazosin. Blood pressure under goal.
DVT prophylaxis-Lovenox
Anticipated Discharge: Within 24 hours
Subjective/Interval History
-
Date of Service: December 08, 2024
Feeling improved. Tolerating clear liquids without any abdominal pain today. Passing gas and also had a bowel movement yesterday.
No fever or chills.
No shortness of breath or chest pain.
No dizziness.
Objective Data
-
Labs:
Laboratory Results
12/08/24
06:08
WBC 9.2
Hgb 10.5 L
Hct 30.9 L
Plt Count 195
Sodium 135
Potassium 4.1
Chloride 108 H
Carbon Dioxide 26
BUN 18
Creatinine 0.8
Glucose 102 H
Calcium 7.7 L
Vital Signs:
Vital Signs
Temp Pulse Resp BP Pulse Ox
98.2 F 47 17 128/54 96
12/08/24 07:17 12/08/24 07:17 12/08/24 07:17 12/08/24 07:17 12/08/24 07:17
I&O
12/07/24 12/08/24 12/09/24
06:59 06:59 06:59
Intake Total 1410 / 1410 2850 / 2850
Output Total 2049 / 2049 1150 / 1150
Balance -640 / -640 1700 / 1700
Physical Exam
-
General: Comfortable
Respiratory: Clear to Auscultation and Non Labored Respirations; Negative Accessory Resp Muscle Use
Cardiac: Regular Rhythm and S1/S2
GI: Soft and Normal Bowel Sounds
Neuro: AO x 3
Data Reviewed
-
Labs: Labs Reviewed by me
--- NOTE | 2024-12-08 13:33 | W.PN.GS2 ---
Addendum entered and electronically signed by Torin Nieves MD 12/08/24 14:48:
I saw and examined the patient.
The Endoscopy Technician's note was reviewed and I agree with the note.
Comment: Improving. belly soft, approp ttp. BM+, jf cld. Adv to lrd
Original Note:
Today's Communication / Plan
-
Advance diet
Assessment / Plan
-
84 yo male presenting with closed loop sbo now POD #3 Ex lap, richi and SBR
AFVSS
Doing well post operatively
Labs stable
Tolerating clears, passing flatus/stool
--Advance to LRD
--D/C IVF
--Analgesics prn
--OOB/Ambulate
--IS while awake
--SCDs/Lovenox for VTE ppx
Medical management as per primary team
Subjective Data
-
Date of Service: December 08, 2024
Patient seen and examined at bedside with Dr. Nieves. Ambulating in room, oob to chair. Minimal discomfort. Denies n/v. Passing flatus and some stool. Tolerating clears.
Objective Data
-
Intake and Output
12/07/24 12/08/24 12/09/24
06:59 06:59 06:59
Intake Total 1410 / 1410 2850 / 2850
Output Total 2049 / 2049 1150 / 1150
Balance -640 / -640 1700 / 1700
Intake:
Oral fluids 840 / 840
IV fluids (Total) 1320 / 1320 1500 / 1500
IV piggybacks 480 / 480
Amount instilled into GI Tube ( 90 / 90 30 / 30
Total)
[place] Sump 90 / 90 30 / 30
Output:
Gastrointestinal tube output ( 150 / 150 200 / 200
Total)
[place] Sump 150 / 150 200 / 200
Urine, Alonso 1900 / 1900
Urine, Voided 950 / 950
Other:
Number of approximated MODERATE 1
amounts of urine
Vital Signs
Temp Pulse Resp BP Pulse Ox
98.2 F 47 17 128/54 96
12/08/24 07:17 12/08/24 07:17 12/08/24 07:17 12/08/24 07:17 12/08/24 07:17
Lab Results
12/08/24 06:08
12/08/24 06:08
Calcium 7.7 mg/dl (8.4-10.2) L 12/08/24 06:08
Magnesium 2.2 mg/dl (1.6-2.3) 12/06/24 07:15
Total Bilirubin 0.6 mg/dl (0.2-1.3) 12/05/24 00:10
AST 35 U/L (17-59) 12/05/24 00:10
ALT 37 U/L (0-50) 12/05/24 00:10
Alkaline Phosphatase 81 U/L (38-126) 12/05/24 00:10
Total Protein 6.7 g/dl (6.3-8.2) 12/05/24 00:10
Albumin 4.4 g/dl (3.5-5.0) 12/05/24 00:10
Physical Exam
-
NAD
ABD soft, ND, expected incisional tenderness
Incision with intact dressing
Patient has a alonso catheter: No
Patient has a central line: No
[2024-12-08 15:12] VITALS: BP 121/56
[2024-12-08] MEDS: LOVENOX 40 MG SC (18:30)
[2024-12-08 23:35] VITALS: BP 157/71
[2024-12-08 23:50] VITALS: BP 157/71
[2024-12-09] MEDS: TYLENOL 1000 MG PO ×2 (01:42→21:01)
[2024-12-09 07:30] VITALS: BP 148/75
[2024-12-09] MEDS: NSS (PRESERVATIVE FREE) 10 ML IV (08:03)
[2024-12-09] MEDS: PROCARDIA XL (EXTENDED RELEASE) 30 MG PO (08:03)
[2024-12-09] MEDS: PROTONIX IV 40 MG IV (08:03)
--- NOTE | 2024-12-09 10:40 | W.PN.GS2 ---
Today's Communication / Plan
-
continue LRD
Assessment / Plan
-
84 yo male presenting with closed loop sbo now POD #4 Ex lap, richi and SBR
AFVSS
Doing well post operatively
Tolerating diet, passing stools/flatus but distention persists
--Continue LRD
--Analgesics prn
--OOB/Ambulate
--IS while awake
--SCDs/Lovenox for VTE ppx
Would like to see improvement in distention prior to discharge, if continues to improve, anticipate d/c in the next 24hours
Subjective Data
-
Date of Service: December 09, 2024
Patient seen and examined at bedside with Dr. Carter. Denies n/v. Passing flatus and stools. Denies pain.
Objective Data
-
Intake and Output
12/08/24 12/09/24 12/10/24
06:59 06:59 06:59
Intake Total 2850 / 2850 1860 / 1860
Output Total 1150 / 1150 700 / 700
Balance 1700 / 1700 1160 / 1160
Intake:
Oral fluids 840 / 840 1860 / 1860
IV fluids (Total) 1500 / 1500
IV piggybacks 480 / 480
Amount instilled into GI Tube ( 30 / 30
Total)
[place] Sump 30 / 30
Output:
Gastrointestinal tube output ( 200 / 200
Total)
[place] Sump 200 / 200
Urine, Voided 950 / 950 700 / 700
Other:
Number of approximated MODERATE 1 8
amounts of urine
Vital Signs
Temp Pulse Resp BP Pulse Ox
98.1 F 66 16 148/75 96
12/09/24 07:30 12/09/24 08:03 12/09/24 07:30 12/09/24 08:03 12/09/24 07:30
Lab Results
12/08/24 06:08
12/08/24 06:08
Calcium 7.7 mg/dl (8.4-10.2) L 12/08/24 06:08
Magnesium 2.2 mg/dl (1.6-2.3) 12/06/24 07:15
Total Bilirubin 0.6 mg/dl (0.2-1.3) 12/05/24 00:10
AST 35 U/L (17-59) 12/05/24 00:10
ALT 37 U/L (0-50) 12/05/24 00:10
Alkaline Phosphatase 81 U/L (38-126) 12/05/24 00:10
Total Protein 6.7 g/dl (6.3-8.2) 12/05/24 00:10
Albumin 4.4 g/dl (3.5-5.0) 12/05/24 00:10
Physical Exam
-
NAD
ABD soft, mod distention, nt
Midline incision well approximated with intact byron
[2024-12-09 15:30] VITALS: BP 154/94
--- NOTE | 2024-12-09 16:05 | CM ---
Chart reviewed; met with pt
Low residue diet - tolerating
Poss d/c tomorrow
Plan - anticipate home no needs
--- NOTE | 2024-12-09 16:23 | W.PN.HOSP.TC ---
Today's Communication/Plan
-
Diet has been advanced to low residue
Monitor for tolerance and/or worsening of abdominal distention for another 24 hours prior to discharge.
Assessment / Plan
Assessment / Plan
Acute small bowel obstruction with closed-loop component status post emergent surgery and bowel resection.
NG tube is out on clear liquids. Tolerating clear liquids. Advance diet diet per surgery.
Hypertension-patient on doxazosin and nifedipine at home. Reintroduced nifedipine and if continued need and doxazosin. Blood pressure under goal.
DVT prophylaxis-Lovenox
Anticipated Discharge: Within 24 hours
Subjective/Interval History
-
Date of Service: December 09, 2024
Objective Data
-
Vital Signs:
Vital Signs
Temp Pulse Resp BP Pulse Ox
98.1 F 66 16 148/75 96
12/09/24 07:30 12/09/24 08:03 12/09/24 07:30 12/09/24 08:03 12/09/24 07:30
I&O
12/08/24 12/09/24 12/10/24
06:59 06:59 06:59
Intake Total 2850 / 2850 1860 / 1860
Output Total 1150 / 1150 700 / 700
Balance 1700 / 1700 1160 / 1160
Physical Exam
-
General: Comfortable
Respiratory: Clear to Auscultation and Non Labored Respirations; Negative Accessory Resp Muscle Use
Cardiac: Regular Rhythm and S1/S2
GI: Soft and Normal Bowel Sounds
Neuro: AO x 3
[2024-12-09] MEDS: LOVENOX 40 MG SC (17:26)
[2024-12-09] MEDS: MELATONIN 5 MG PO (21:01)
[2024-12-09] MEDS: ATIVAN 1 MG PO (22:57)
[2024-12-09 23:30] VITALS: BP 151/66
[2024-12-10 07:16] VITALS: BP 148/76
[2024-12-10] MEDS: NSS (PRESERVATIVE FREE) 10 ML IV (07:48)
[2024-12-10] MEDS: PROTONIX IV 40 MG IV (07:48)
[2024-12-10] MEDS: PROCARDIA XL (EXTENDED RELEASE) 30 MG PO (07:48)
--- NOTE | 2024-12-10 07:52 | W.PN.GS2 ---
Today's Communication / Plan
-
-- LRD, education provided
-- OK for DC from surgical perspective
Assessment / Plan
-
84 yo male presenting with closed loop sbo now POD#4 s/p ex lap, richi and SBR
AFVSS
Doing well post operatively
Tolerating diet, passing stools/flatus but distention persists
--Continue LRD, education provided
--Pain control: Tylenol, Oxycodone
--OOB/Ambulate
--IS while awake
--Home meds
--DVT: SCDs/Lovenox
Patient wishes to be discharged, risks of ileus and need to return to the ER discussed. Given stability with continued tolerance of diet and passage of flatus and stools OK for DC from surgical perspective.
Subjective Data
-
Date of Service: December 10, 2024
No complaints. Pain well-controlled. No nausea or vomiting. Tolerated a low residue diet. Reports passing multiple stools including loose and formed. Reports passing flatus. Afebrile. Ambulating.
Objective Data
-
Intake and Output
12/09/24 12/10/24 12/11/24
06:59 06:59 06:59
Intake Total 1860 / 1860 240 / 240
Output Total 700 / 700 100 / 100
Balance 1160 / 1160 140 / 140
Intake:
Oral fluids 1860 / 1860 240 / 240
Output:
Urine, Voided 700 / 700 100 / 100
Other:
Number of approximated MODERATE 8
amounts of urine
Vital Signs
Temp Pulse Resp BP Pulse Ox
98.2 F 60 18 151/66 97
12/09/24 23:30 12/09/24 23:30 12/09/24 23:30 12/09/24 23:30 12/09/24 23:30
Lab Results
12/08/24 06:08
12/08/24 06:08
Calcium 7.7 mg/dl (8.4-10.2) L 12/08/24 06:08
Magnesium 2.2 mg/dl (1.6-2.3) 12/06/24 07:15
Total Bilirubin 0.6 mg/dl (0.2-1.3) 12/05/24 00:10
AST 35 U/L (17-59) 12/05/24 00:10
ALT 37 U/L (0-50) 12/05/24 00:10
Alkaline Phosphatase 81 U/L (38-126) 12/05/24 00:10
Total Protein 6.7 g/dl (6.3-8.2) 12/05/24 00:10
Albumin 4.4 g/dl (3.5-5.0) 12/05/24 00:10
Physical Exam
-
Gen: NAD
Abd: soft, NT, distended, non-peritoneal, incision c/d/i - no erythema, ecchymosis or drainage, byron in place
Patient has a alonso catheter: No
Patient has a central line: No
--- NOTE | 2024-12-10 13:36 | W.DS.TRANS ---
DC Summary - Roll Hand
-
Discharge Instructions:
Discharge Diagnosis/Procedures Small bowel obstruction status post exploratory
laparotomy with small bowel resection
Diet Low Fiber
Activity No strenuous activity
Additional Activity Do not lift over 15lbs for the next 4-6 weeks
Bathing Restrictions OK to Shower
Wound Care [place] will be removed at your follow up
appointment with your surgeon 2-3 weeks after
your surgery. Ok to shower and wash gently with
soap and water. Cover with dry gauze dressing as
needed for drainage.
Instructions:
Stand-Alone Forms:
Changes to Home Medications: No
Discharge Medications:
DC Medications w/original date entered in [employer]
omeprazole 20 mg capsule,delayed release 20 mg PO DAILY Gastrointestinal issue 04/26/17
aspirin 81 mg tablet,delayed release 81 mg PO DAILY Blood clot prevention/tx 06/10/19
lorazepam 1 mg tablet 1 mg PO HSPRN PRN anxiety/insomnia 06/10/19
diclofenac sodium 75 mg tablet,delayed release 75 mg PO BID 08/03/22
doxazosin 4 mg tablet 8 mg PO HS 06/01/23
ferrous [id number] conc capsule cap PO DAILY 08/03/23
hydrocodone 7.5 mg-acetaminophen 325 mg tablet 1 tab PO Q6H PRN pain 08/03/23
multivitamin tab Daily 08/03/23
nifedipine 30 mg tablet,extended release 24 hr (Procardia XL) 30 mg PO DAILY 08/03/23
Home Medication Changes
Pending Results: No
--- NOTE | 2024-12-10 14:10 | CM ---
Patient seen at bedside
IMM explained & signed in chart
PLAN: Home, no needs
son to transport
[2024-12-10 14:29] VITALS: BP 123/51
--- NOTE | 2024-12-10 14:35 | PN.CDI ---
CDI
- -
CDI:
Physician Documentation Request
Admit Date: 12/05/24 04:06
Dear Araceli HONG,
Patient admitted with small bowel obstruction.
12/09 PN, 'Acute small bowel obstruction with closed-loop component status post emergent surgery and bowel resection.
Please provide in your note the extent of the documented SBO:
Complete
Partial
Other
Use of terms such as suspected, likely, concern for, or probable (associated with a specific diagnosis that is being evaluated, monitored, or treated as if it exists) are acceptable and can be coded in the inpatient setting, when documented at the
time of discharge.
Thank you,
Ofe ALARCON,RN,CCDS
CDI Specialist
Available via [place] text
Please use your independent medical judgment in providing your response.
--- NOTE | 2024-12-10 14:50 | PN.CDI ---
CDI
- -
CDI:
Physician Documentation Request
Admit Date: 12/05/24 04:06
Dear Araceli HONG,
Patient admitted with small bowel obstruction.
12/09 PN, 'Acute small bowel obstruction with closed-loop component status post emergent surgery and bowel resection.
12/05/24 Hgb 13.3
12/08/24 Hgb 10.5
Based on the above, please clarify in your progress note, which of the following is the most likely diagnosis you are evaluating, monitoring and/or treating?
Acute blood loss anemia
Insignificant abnormal lab findings
Other
Use of terms such as suspected, likely, concern for, or probable (associated with a specific diagnosis that is being evaluated, monitored, or treated as if it exists) are acceptable and can be coded in the inpatient setting, when documented at the
time of discharge.
Thank you,
Ofe ALARCON,RN,CCDS
CDI Specialist
Available via [employer] text
Please use your independent medical judgment in providing your response.
== END 2024-12-10 16:31 | disposition home or self-care (01) | DRG 330 ==
LOC: 2 SOUTH 04:06
PROVIDERS: Internal Medicine; Physician Assistant; Registered Nurse; ADMITTING PHYSICIAN Internal Medicine; ATTENDING PHYSICIAN Internal Medicine; CONSULT PHYSICIAN Surgery; EMERGENCY PHYSICIAN Emergency Medicine; FAMILY PHYSICIAN Internal Medicine
PROC: 0DB80ZZ Excision of Small Intestine, Open Approach (ICD-10-PCS; 2024-12-06)
PROC: 0DN80ZZ Release Small Intestine, Open Approach (ICD-10-PCS; 2024-12-06)
DX: K56.50 Intestinal adhesions [bands], unspecified as to partial versus complete obstruction (principal); K55.9 Vascular disorder of intestine, unspecified; I10 Essential (primary) hypertension; G89.29 Other chronic pain; Z90.49 Acquired absence of other specified parts of digestive tract; G43.109 Migraine with aura, not intractable, without status migrainosus; I73.00 Raynaud's syndrome without gangrene; K21.9 Gastro-esophageal reflux disease without esophagitis; N40.0 Benign prostatic hyperplasia without lower urinary tract symptoms; E78.5 Hyperlipidemia, unspecified; H91.93 Unspecified hearing loss, bilateral; M19.90 Unspecified osteoarthritis, unspecified site; Z96.653 Presence of artificial knee joint, bilateral; Z96.612 Presence of left artificial shoulder joint; Z79.82 Long term (current) use of aspirin; G47.00 Insomnia, unspecified; Z79.899 Other long term (current) drug therapy; Z88.1 Allergy status to other antibiotic agents
CPT/HCPCS: 88307; 74177; 80048; 80053; 83605; 83690; 83735; 85025; 85027; 85610; 86850; 86900; 86901; 93306; 96361; 96374; 96375; 99291; C1776; J1335; Q9967

== ENCOUNTER → 2024-12-17 10:31 | Outpatient (REF) | payer MEDICARE, BC, SELFPAY ==
[2024-12-17 16:32] LABS: Vitamin B12 918 pg/ml (239-931)
== END ==
LOC: HWRAD 10:31
PROVIDERS: ATTENDING PHYSICIAN Internal Medicine Critical Care Medicine; FAMILY PHYSICIAN Internal Medicine; REFERRING PHYSICIAN Internal Medicine Cardiovascular Disease
DX: R91.8 Other nonspecific abnormal finding of lung field (principal); K56.609 Unspecified intestinal obstruction, unspecified as to partial versus complete obstruction; Z79.899 Other long term (current) drug therapy
CPT/HCPCS: 36415; 71250; 82607

== ENCOUNTER 2024-12-19 20:31 | Inpatient (IN) | payer MEDICARE, BC, SELFPAY ==
[2024-12-19 14:56] VITALS: BP 123/65
[2024-12-19 15:13] LABS: % Basophils 0.2 % (0-2); % Eosinophils 0.8 % (0-6); % Immature Granulocytes 0.4 % (0-0.5); % Monocytes 5.3 % (1.7-9.3); % Neutrophils 88.3 % (42.2-75.2); Absolute Eosinophils 0.1 10^3/uL (0-0.7); Absolute Immature Granulocytes 0.1 10^3/uL (0-0.05); Absolute Lymphocytes 0.8 10^3/uL (1.2-3.4); Absolute Monocytes 0.9 10^3/uL (0.1-0.6); Absolute Neutrophils 14.4 10^3/uL (1.4-6.5); Hematocrit 36.2 % (39.0-52.0); Hemoglobin 12.4 g/dL (13.0-18.0); Mean Corp Hgb Conc. 34.3 g/dL (33.0-37.0); Mean Corpuscular Hgb 32.3 pg (27.0-31.0); Mean Corpuscular Volume 94.3 fL (80.0-94.0); Mean Platelet Volume 9.6 fL (7.4-10.4); Nucleated Red Blood Cells % 0 % (-); Platelet Count 399 10^3/uL (130-400); Red Blood Cell Count 3.84 10^6/uL (4.70-6.10); Red Cell Dist. Width 12.3 % (11.5-14.5); White Blood Cell Count 16.3 10^3/uL (4.8-10.8)
[2024-12-19 15:25] LABS: ALT (SGPT) 30 U/L (0-50); AST (SGOT) 24 U/L (17-59); Albumin 3.3 g/dl (3.5-5.0); Alkaline Phosphatase 79 U/L (38-126); Blood Urea Nitrogen 30 mg/dl (9-20); Calcium 9.1 mg/dl (8.4-10.2); Carbon Dioxide 27 mmol/L (22-30); Chloride 106 mmol/L (98-107); Glucose 139 mg/dl (70-99); Lipase 65 U/L (23-300); Potassium 5.2 mmol/L (3.5-5.1); Sodium 139 mmol/L (135-145); Total Bilirubin 0.4 mg/dl (0.2-1.3); Total Protein 5.5 g/dl (6.3-8.2); eGFR > 60.00
[2024-12-19 15:50] VITALS: BMI 22.3
[2024-12-19] MEDS: NSS 1000 IV ×2 (15:55→22:14)
[2024-12-19] MEDS: OMNIPAQUE 50 ML PO (15:55)
[2024-12-19 16:13] LABS: Lactic Acid 1.3 mmol/L (0.7-2.0)
--- NOTE | 2024-12-19 16:44 | ED.GENMED ---
History of Present Illness
General
Chief Complaint: Bowel Problem
Source: patient and records
Time Seen by Provider: 12/19/24 15:41
History of Present Illness
History of Present Illness:
84-year-old male with past medical history of hypertension, GERD, previous GI bleeding, recently admitted to this facility for small bowel obstruction in the end of November presenting back to the emergency department for abdominal pain and distention
that he states started around midnight last night. Patient states that his pain presently is a little bit better now than it was earlier today after he did have a larger bowel movement. Patient states that he drank a little bit of prune juice
which she thinks started the symptoms. He saw Dr. Varghese in follow-up yesterday who removed the byron from the surgical site and was pleased with patient's recovery. Patient states that he has not passed any flatus since midnight last night up
until his bowel movement earlier but none since as well.
Past History
Past History
ED Past Medical History: CVA, GERD, HTN and Other (diverticulitis)
ED Past Surgical History: Bowel resection, Orthopedic and Other
Social History
Tobacco: Non-smoker
Alcohol: None
Drug: None
Personal:
Living: with family
Employment: Employed
Review of Systems
Review of Systems
All Other Systems: ROS reviewed and negative except as documented in HPI and ROS
Phy Exam
Physical Exam
Physical Exam:
GENERAL: Alert , in no apparent distress
EYE: clear conjunctiva b/l
HEAD: NCAT
ENT: mmm.
CARDIAC: Regular rate and rhythm .
LUNGS: Clear breath sounds bilaterally, no acute respiratory distress, no wheezes/rales/rhonchi
ABDOMEN: Firm and distended, without focal tenderness, no r/g, no cvat, normoactive bowel sounds throughout
NEUROLOGICAL: Alert and oriented
SKIN: Warm and dry, skin intact.
MUSCULOSKELETAL: No edema, well perfused.
PSYCH: Normal and appropriate interaction.
Scores
Heart Failure Risk
Heart Failure Risk Score: Not Applicable
Heart Score for Chest Pain Patients
STEMI patient?: Not applicable
Withdrawal Assessment of Alcohol
Withdrawal Assessment Completed?: Not applicable
Course
Orders/Labs/Results
Orders:
Orders
12/19/24 15:05
Complete Blood Count/With Diff Urgent
Comprehensive Metabolic Panel Urgent
Lipase Urgent
12/19/24 15:49
CT Abd/pel W Iv And Oral Contr Urgent
Comment:
Reason For Exam: abd distention, recent SBO
Iohexol [Omnipaque] See Protocol PO NOW STA
12/19/24 15:50
0.9% Sodium Chloride 1000 ml [Nss] 1,000 ml IV BOLUS
12/19/24 15:52
Lactic Acid Q4H
Comment: CANCEL 2nd LACTIC ACID IF 1st LACTIC ACID IS LESS THAN 2
Abnormal Lab Results
12/19/24
15:05
WBC 16.3 H 10^3/uL
(4.8-10.8)
RBC 3.84 L 10^6/uL
(4.70-6.10)
Hgb 12.4 L g/dL
(13.0-18.0)
Hct 36.2 L %
(39.0-52.0)
MCV 94.3 H fL
(80.0-94.0)
MCH 32.3 H pg
(27.0-31.0)
Abs Immat Gran (auto) 0.1 H 10^3/uL
(0-0.05)
Absolute Neuts (auto) 14.4 H 10^3/uL
(1.4-6.5)
Absolute Lymphs (auto) 0.8 L 10^3/uL
(1.2-3.4)
Absolute Monos (auto) 0.9 H 10^3/uL
(0.1-0.6)
Neutrophils % 88.3 H %
(42.2-75.2)
Lymphocytes % 5.0 L %
(20.5-51.1)
Potassium 5.2 H mmol/L
(3.5-5.1)
BUN 30 H mg/dl
(9-20)
Glucose 139 H mg/dl
(70-99)
Total Protein 5.5 L g/dl
(6.3-8.2)
Albumin 3.3 L g/dl
(3.5-5.0)
12/19/24 15:05
12/19/24 15:05
Vital Signs
Initial and Last Documented VS:
Initial Vital Signs
Temp Pulse Resp BP Pulse Ox
97.7 F 103 18 123/65 98
12/19/24 14:56 12/19/24 14:56 12/19/24 14:56 12/19/24 14:56 12/19/24 14:56
Last Documented Vital Signs
Temp Pulse Resp BP Pulse Ox
97.7 F 74 18 123/65 100
12/19/24 14:56 12/19/24 19:45 12/19/24 14:56 12/19/24 14:56 12/19/24 19:00
MDM/Problems Addressed
Differential Diagnosis Includes:
Reoccurring obstruction, constipation, UTI, diverticulitis, pancreatitis
MDM/Problems Addressed:
84-year-old male presenting to the ER for reevaluation after being seen in the emergency department 2 weeks ago, diagnosed with a bowel obstruction and admitted, had surgery, been doing well in recovery up until midnight last night. Patient did
have a bowel movement this afternoon with some improvement of symptoms but still notes he feels distended and uncomfortable. Will obtain labs and CT imaging. Patient declining anything for pain but will provide some Zofran for nausea given patient
needs to drink oral contrast. Will discuss with surgery pending results.
Chronic conditions affecting care: Previous abdomnial surgery
*Radiology
Radiology exam reviewed: radiology read reviewed
*Pulse Oximetry
Patient hypoxic: no
*Critical Care Note
Total Time (30-74mins, 75-104mins- exclusive of procedures): Not Applicable
Data Reviewed
Review of Other/Old Records Reveals: Labs, Records and Discharge Summary
Patient Management
Discussion with other providers: Hospitalist and [employer]
Escalation/DeEscalation of care consider admission/obs:
CT findings noted for likely ileus versus developing small bowel obstruction. Given patient's history combined with symptoms I am most suspicious for developing small bowel obstruction. Patient's pain has remained under control and he does not
have any current nausea or vomiting. I discussed the case with on-call surgeon, Dr. Cruz, who is aware of patient and history. Recommends patient be admitted to hospitalist service and he will see in the morning in consult. Hospitalist team is
aware and accepts for continued evaluation and treatment. Patient remains with symptoms currently tolerable.
ED Attending Note
-
Portions of this chart may have been created with voice recognition software.� Occasional wrong word or��sound alike� substitutions may have occurred due to the inherent limitations of voice recognition software.
Discharge Plan
Departure
Patient Disposition: Admit
Date of Disposition: 12/19/24
Time of Disposition: 19:17
Presentation/result/management discussed w/ accepting MD/DO: Hospitalist
Discharge Problem:
Small bowel obstruction
Prescriptions:
No Action
omeprazole 20 MG capsule,delayed release(DR/EC)
20 mg PO DAILY
aspirin 81 MG tablet,delayed release (DR/EC)
81 mg PO DAILY
lorazepam 1 MG tablet
1 mg PO HS
Patient Comments:
12/19/24: patient last filled #30 for 30 days on 11/23/24
diclofenac sodium 75 mg Tablet,Delayed Release (Dr/Ec)
75 mg PO BID
doxazosin 4 mg Tablet
8 mg PO HS
hydrocodone-acetaminophen 7.5-325 mg Tablet
1 tab PO Q6HPRN PRN (Reason: severe pain)
Patient Comments:
12/19/24: last filled #120 for 30 day supply on 11/04/24
[place] Tablet
1 tab PO DAILY
nifedipine 30 mg Tablet Extended Release
30 mg PO DAILY
ferrous sulfate 325 mg (65 mg iron) Tablet
325 mg PO DAILY
lidocaine 5 % Adhesive Patch,Medicated
1 patch TOPICAL DAILYPRN PRN (Reason: back/elbow)
coenzyme Q10 [CoQ-10] 100 mg Capsule
100 mg PO HS
rosuvastatin 5 mg Tablet
5 mg PO HS
Referrals:
Wilmer Blancas MD [Family Provider] -
Interventions
Interventions:
*Risk Screen - Suicide Last Done: 12/19/24 14:56
*General Assessment Last Done: 12/19/24 14:56
*Neglect/Abuse Screening Last Done: 12/19/24 15:41
*ED- Fall Risk Assessment Last Done: 12/19/24 15:41
*ED COVID-19 Vaccine History Last Done: 12/19/24 14:56
IF-Otjomp-Jgylrxrsaa Assessment Last Done: 12/19/24 15:42
Discharge Date and Time
Print Language: SWEDISH
--- NOTE | 2024-12-19 20:03 | HPS.HSE ---
Family Physician
-
Family Physician: Devante Blancas
Chief Complaint
-
Abd Pain
History of Present Illness
Patient is an 84y M with PMH significant for hypertension and recent admission for SBO who presents to ED complaining of abdominal pain. Patient was recently admitted from 12/05 - 12/10 for abdominal pain and N/V. He was found to have SBO and was
taken urgently to the OR. He underwent ex lap with CORA and partial small bowel resection of segment of bowel which appeared ischemic. Patient states that he recovered without issue and was feeling well on 12/10 when he was discharged. He continued
to feel well until last PM when he developed bloated sensation and abdominal pain in the mid-abdomen. He induced emesis himself with some improvement in his symptoms. He had no other episodes of emesis. He continued to have bloating and
discomfort today and presented to the ED for further evaluation.
Patient states that he probably 'overdid it' in terms of his diet / food intake in the past few days.
He states that he had a bowel movement today prior to presentation. He has continued to pass flatus here in the ED.
Medical History
Past Medical History
Past Medical History: Reports Other
Additional Past Medical History:
Hypertension
Chronic Back Pain / DDD
Diverticular Disease
Past Surgical History: Reports Other
Additional Past Surgical History:
Ex Lap / CORA / SBR (12/05/24)
Sigmoid Resection / Colostomy
Colostomy Reversal
Bilateral TKA
Left TSA
Spinal Stimulator Placement
Social History
Tobacco: Former Smoker (Quit smoking in 1970)
Alcohol: Occasional
Drug: None
Family History
Family History: Not pertinent
Allergies / Home Medications
Allergies reflects when Allergies were last updated in [facility].
Home Medications with original date entered in [employer]
Allergy/Medication List:
Allergies
Allergy/AdvReac Type Severity Reaction Status Date / Time
erythromycin base Allergy Swelling Verified 12/19/24 15:00
Home Medications
omeprazole 20 mg capsule,delayed release 20 mg PO DAILY Gastrointestinal issue 04/26/17
aspirin 81 mg tablet,delayed release 81 mg PO DAILY Blood clot prevention/tx 06/10/19
lorazepam 1 mg tablet 1 mg PO HS 06/10/19
diclofenac sodium 75 mg tablet,delayed release 75 mg PO BID 08/03/22
doxazosin 4 mg tablet 8 mg PO HS 06/01/23
hydrocodone 7.5 mg-acetaminophen 325 mg tablet 1 tab PO Q6HPRN PRN severe pain 08/03/23
coenzyme Q10 100 mg capsule (CoQ-10) 100 mg PO HS 12/19/24
ferrous sulfate 325 mg (65 mg iron) tablet 325 mg PO DAILY 12/19/24
lidocaine 5 % topical patch 1 patch topical DAILYPRN PRN back/elbow 12/19/24
nifedipine 30 mg tablet,extended release 30 mg PO DAILY 12/19/24
rosuvastatin 5 mg tablet 5 mg PO HS 12/19/24
therapeutic multivitamin 1 tab PO DAILY 12/19/24
Review of Systems
-
History Source: Patient
A 12 point ROS was completed and negative except as noted: Yes
Constitutional: Denies Fever or Chills
Respiratory: Denies Cough or Trouble Breathing
Cardiac: Denies Chest Pain or Palpitations
Abdomen/GI: Reports Abdominal Pain, Nausea and Vomiting (Induced); Denies Diarrhea, Constipated or Anorexia
: Denies Dysuria, Frequency or Flank Pain
Musculoskeletal: Denies Joint Pain or Edema
Neurological: Denies Dizzy or Headache
Psych: Denies Depression or Anxiety
Physical Exam
Vital Signs
Vital Signs
Temp Pulse Resp BP Pulse Ox
97.7 F 74 18 123/65 100
12/19/24 14:56 12/19/24 19:45 12/19/24 14:56 12/19/24 14:56 12/19/24 19:00
Physical Exam
General: Other (84y M in no acute distress.)
HEENT: Moist mucous membranes
Respiratory: Clear; No Wheezes, Rales or Rhonchi
Cardiac: S1/S2 and Regular Rhythm; No Murmur
GI: Other (Sodftly distended. Mild tenderness in mid-abdomen. Bowel sounds are quite diminished. Midline incision well-appearing.)
Musculoskeletal: No Clubbing, No Cyanosis and No Edema
Neuro: AO x 3
Laboratory Results
-
12/19/24 15:05
12/19/24 15:05
Laboratory Results
Lactic Acid Cancelled 12/19/24 19:45
Total Bilirubin 0.4 mg/dl (0.2-1.3) 12/19/24 15:05
AST 24 U/L (17-59) 12/19/24 15:05
ALT 30 U/L (0-50) 12/19/24 15:05
Alkaline Phosphatase 79 U/L (38-126) 12/19/24 15:05
Lipase 65 U/L (23-300) 12/19/24 15:05
Impression/Plan
-
A/P: Patient is an 84y M with PMH significant for hypertension and recent SBO s/p ex lap and SBR who presents to ED complaining of abdominal pain since last PM.
SBO / Ileus
- Admit for further evaluation and treatment.
- CT done in the ED shows clips from recent SBR in the RLQ area.
- Dilated loops of small bowel appreciated as well c/w SBO or ileus.
- Latter seems more likely given continued BM / flatus.
- NPO, follow for clinical improvement. Check KUB in the AM.
- NG decompression if any emesis or increased pain.
- Surgery evaluation for additional recommendations.
Benign Hypertension
- Stable. Continue nifedipine with holding parameters.
Chronic Back Pain
- Stable. Has spinal stimulator in place which is functioning.
DVT Prophylaxis: SCDs
Code Status: Full
[2024-12-19 21:35] VITALS: BP 153/69
[2024-12-19 22:01] VITALS: BMI 22.3
[2024-12-19 22:03] VITALS: BP 139/72
--- NOTE | 2024-12-19 22:03 | PTCARENOTE ---
Pt arrived onto floor @2203. Pt AAOx3 and able to walk into room without assistance. Pt with no complaints of pain or SOB at this time. Pt oriented to room and call guerrero; will continue to monitor.
[2024-12-19] MEDS: ATIVAN 1 MG PO (22:15)
[2024-12-20 07:30] VITALS: BP 139/67
[2024-12-20 08:31] LABS: Hematocrit 31.3 % (39.0-52.0); Hemoglobin 10.6 g/dL (13.0-18.0); Mean Corp Hgb Conc. 33.9 g/dL (33.0-37.0); Mean Corpuscular Hgb 31.6 pg (27.0-31.0); Mean Corpuscular Volume 93.4 fL (80.0-94.0); Mean Platelet Volume 9.6 fL (7.4-10.4); Platelet Count 344 10^3/uL (130-400); Red Blood Cell Count 3.35 10^6/uL (4.70-6.10); Red Cell Dist. Width 12.3 % (11.5-14.5); White Blood Cell Count 8.6 10^3/uL (4.8-10.8)
[2024-12-20] MEDS: PROCARDIA XL (EXTENDED RELEASE) 30 MG PO (08:40)
[2024-12-20] MEDS: NSS (PRESERVATIVE FREE) 10 ML IV (08:40)
[2024-12-20] MEDS: PROTONIX IV 40 MG IV (08:40)
--- NOTE | 2024-12-20 08:44 | W.PN.HOSP.TC ---
Addendum entered and electronically signed by Luma Ivan MD 12/20/24 14:37:
Addendum
Patient had lunch and felt well, had another BM
Total discharge time spent to see the patient, examine the patient, review data and lab results, discuss discharge plan with patient, nursing staff around 65 minutes
Original Note:
Today's Communication/Plan
-
Possible discharge
Assessment / Plan
Assessment / Plan
Physical Exam
General: Other (84y M in no acute distress.)
HEENT: Moist mucous membranes
Respiratory: Clear; No Wheezes, Rales or Rhonchi
Cardiac: S1/S2 and Regular Rhythm; No Murmur
GI: soft, mild tenderness in mid-abdomen. Bowel sounds are quite diminished. Midline incision well-appearing.)
Musculoskeletal: No Clubbing, No Cyanosis and No Edema
Neuro: AO x 3
Patient is an 84y M with PMH significant for hypertension and recent SBO s/p ex lap and SBR who presented to ED complaining of abdominal pain since last PM.
SBO / Ileus
he denies pain or naisea
passing gas
- CT done in the ED shows clips from recent SBR in the RLQ area.
- Dilated loops of small bowel appreciated as well c/w SBO or ileus.
-started on LRD by brandee
- Surgery evaluation for additional recommendations.
# Leukocytosis, resolved
No fevers
# Hyperkalemia
resolved
# Mild drop in HGB
suspect dilutional
#Benign Hypertension
- Stable. Continue nifedipine with holding parameters.
Chronic Back Pain
- Stable. Has spinal stimulator in place which is functioning.
DVT Prophylaxis: SCDs
Code Status: Full
Total discharge time spent to see the patient, examine the patient, review data and lab results, discuss discharge treatment plan with patient, nursing staff, around 6minutes
Anticipated Discharge: Within 24 hours
Subjective/Interval History
-
Date of Service: December 20, 2024
He denies abdominal pain
Passing gas
Objective Data
-
Labs:
Laboratory Results
12/20/24
08:04
WBC 8.6
Hgb 10.6 L
Hct 31.3 L
Plt Count 344
Sodium Pending
Potassium Pending
Chloride Pending
Carbon Dioxide Pending
BUN Pending
Creatinine Pending
Glucose Pending
Calcium Pending
Vital Signs:
Vital Signs
Temp Pulse Resp BP Pulse Ox
98.2 F 76 16 139/72 98
12/19/24 22:03 12/19/24 22:03 12/19/24 22:03 12/19/24 22:03 12/19/24 22:03
I&O
12/19/24 12/20/24 12/21/24
06:59 06:59 06:59
Intake Total 800 / 800
Balance 800 / 800
[2024-12-20] MEDS: NSS 1000 IV (09:13)
[2024-12-20 09:15] LABS: Blood Urea Nitrogen 19 mg/dl (9-20); Calcium 8.7 mg/dl (8.4-10.2); Carbon Dioxide 23 mmol/L (22-30); Chloride 111 mmol/L (98-107); Estimated Creatinine Clearance 71 ml/min; Glucose 93 mg/dl (70-99); Potassium 4.2 mmol/L (3.5-5.1); Sodium 140 mmol/L (135-145); eGFR > 60.00
--- NOTE | 2024-12-20 10:19 | CON.GS ---
Addendum entered and electronically signed by Torin Nieves MD 12/20/24 11:32:
I saw and examined the patient.
The Photocopying Machine Operator's note was reviewed and I agree with the note.
Comment: Feeling much better. Passing flatus, had BM denies abd pain denies nausea. Abd soft, incision well healed, nt. OK for LRD and DC home if tolerates. Advised to go to 6 smaller meals rather than 3 larger meals, remain on low res diet for
several weeks.
Original Note:
Consultation
-
Date/Time Consultation Performed: 12/20/24 1000
Performing Provider: Thaddeus Nieves
Medical History
-
Chief Complaint: Abdominal discomfort
History of Present Illness:
Mr. 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
small bowel resection with Dr Varghese on 12/05/24. He was discharged to home on 12/10/24 once he had good bowel recovery. He had his follow up appointment with Dr. Varghese on 12/18 and was doing quite well, byron were removed at that time. After his
appointment, he notes he may have overdid it with his dietary intake and had some prune juice as well with abdominal discomfort and bloating with nausea beginning that night with one episode of vomiting. Bloating and discomfort persisted causing him
to present yesterday evening for evaluation. He reports that since presentation, he has had a BM and been able to pass flatus with improvement in symptoms although still with some mild upper generalized abdominal tenderness.
Past Medical History
Past Medical History: Diverticulitis (perforation in 2012 requiring surgery), GERD, HTN, Hypercholesterolemia and Other (osteoarthritis, ophthalmic migraine, BPH, DJD, bilateral hearing loss, Raynaud's, vertigo)
Past Surgical History: Bowel Resection (Ebenezer procedure with subsequent colostomy reversal both in 2012, Ex lap with SBR 12/05/2024), Cardiac (Loop), Hernia Repair (BL inguinal) and Orthopedic (bilateral knee replacements, left shoulder
replacement, multiple ankle and foot surgeries, spinal cord stimulator)
Social History
Tobacco: Former Smoker (quit )
Alcohol: Occasional
Personal:
Living: With Family
Family History
Family History: Reviewed & Not Pertinent
Allergies / Home Medications
Allergy/AdvReac Type Severity Reaction Status Date / Time
erythromycin base Allergy Swelling Verified 12/19/24 15:00
�Medication �Instructions �Recorded �Confirmed �Type
omeprazole 20 mg capsule,delayed 20 mg PO DAILY Gastrointestinal 04/26/17 12/19/24 History
release issue
aspirin 81 mg tablet,delayed 81 mg PO DAILY Blood clot 06/10/19 12/19/24 History
release prevention/tx
lorazepam 1 mg tablet 1 mg PO HS Mental Health/Anxiety 06/10/19 12/19/24 History
diclofenac sodium 75 mg 75 mg PO BID Constipation 08/03/22 12/19/24 History
tablet,delayed release
doxazosin 4 mg tablet 8 mg PO HS Urinary Issue 06/01/23 12/19/24 History
hydrocodone 7.5 mg-acetaminophen 1 tab PO Q6HPRN PRN severe pain 08/03/23 12/19/24 History
325 mg tablet
coenzyme Q10 100 mg capsule 100 mg PO HS Supplement 12/19/24 12/19/24 History
(CoQ-10)
ferrous sulfate 325 mg (65 mg 325 mg PO DAILY Supplement 12/19/24 12/19/24 History
iron) tablet
lidocaine 5 % topical patch 1 patch topical DAILYPRN PRN 12/19/24 12/19/24 History
back/elbow
nifedipine 30 mg tablet,extended 30 mg PO DAILY Blood Pressure 12/19/24 12/19/24 History
release
rosuvastatin 5 mg tablet 5 mg PO HS High Cholesterol 12/19/24 12/19/24 History
therapeutic multivitamin 1 tab PO DAILY Supplement 12/19/24 12/19/24 History
Review of Systems
-
History Source: Patient
All other systems: Negative unless noted
A 10 point review of systems was completed, and was negative except as per HPI.
Physical Exam
Vital Signs
Temp Pulse Resp BP Pulse Ox
98.8 F 60 20 139/67 97
12/20/24 07:30 12/20/24 07:30 12/20/24 07:30 12/20/24 07:30 12/20/24 07:30
12/19/24 12/20/24 12/21/24
06:59 06:59 06:59
Actual Weight 70.42 kg
Body Mass Index (BMI) 22.3
Lab Results
12/20/24 08:04
12/20/24 08:04
WBC 8.6 10^3/uL (4.8-10.8) 12/20/24 08:04
Hgb 10.6 g/dL (13.0-18.0) L 12/20/24 08:04
Hct 31.3 % (39.0-52.0) L 12/20/24 08:04
Plt Count 344 10^3/uL (130-400) 12/20/24 08:04
Abs Immat Gran (auto) 0.1 10^3/uL (0-0.05) H 12/19/24 15:05
Neutrophils % 88.3 % (42.2-75.2) H 12/19/24 15:05
Physical Exam
General: Well Developed and Well Nourished
HEENT: Moist Mucous Membranes
Respiratory: Non Labored Respirations
GI: Soft, Tender (mild, generalized), Distended (mild) and Incisions (midline incision healing well)
Skin: Warm and Dry
Neuro: Awake, Alert and AO x 3
Psych: Calm
Data Reviewed
-
CT Scan: Image Personally Visualized and interpreted, Report Reviewed by me, Discussed with Physician, Discussed with Patient and Discussed with Family
Labs: Labs Reviewed by me, Discussed with Physician and Discussed with Patient
Old Records: Reviewed
Assessment / Plan
-
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
resection with Dr Varghese on 12/05/24. He was discharged to home on 12/10/24 once he had good bowel recovery. Skin byron removed on 12/18 during his follow up appointment, incision healing well.
Presenting with GI symptoms of bloating/discomfort/nausea x1-2 days. Improved today after passing flatus/stool. No further nausea. CT imaging with some small bowel distention. Moderate stool burden noted. Prior anastomosis are both widely patent.
Air/feces to rectum. Does not appear to be obstructed although possible early adhesive partial sbo; suspect resolving ileus w/ component of constipation. AFVSS. Leukocytosis present on admission now resolved.
-Advance to LRD
-Start daily miralax
-Ok to continue PO meds as tolerated
Ok for d/c from surgical standpoint once tolerating diet, final dispo as per primary team
--- NOTE | 2024-12-20 14:13 | W.DCSUMMARY ---
Discharge Summary
Discharge Data
Date of Admission: 12/19/24
Date of Discharge: 12/20/24
-
Pending Results: No
Hospital Course
84 years old male who was recently admitted In November with a closed loop small bowel obstruction status post exploratory laparotomy with small bowel resection with Dr Varghese on 12/05/24. He was discharged to home on 12/10/24. Patient presented to the
hospital with abdominal discomfort, nausea and 1 episode of vomiting. He reported that he deviated from his recommended low residue diet. Scan of the abdomen pelvis showed signs of small bowel distention with moderate stool burden noted. Patient
is admitted and received intravenous fluid. He had bowel rest. Patient felt better after having bowel movement. He reported he was passing gas. Leukocytosis resolved. He was started back on low residue diet and he had another bowel movement
with no nausea or abdominal pain after eating. He remained hemodynamically stable. Patient was advised to continue with low residue diet, small portion, frequent meals daily. He was advised to follow-up with surgery in the outpatient setting. He
was discharged home in a stable condition.
Discharge Plan
-
Patient Disposition: Home (Routine Discharge)
Discharge Diagnosis/Procedures: Small bowel obstruction
Diet: Low Residue
Referrals:
Wilmer Blancas MD [Family Provider] -
Prescriptions:
Continued
omeprazole 20 MG capsule,delayed release(DR/EC)
20 mg PO DAILY
aspirin 81 MG tablet,delayed release (DR/EC)
81 mg PO DAILY
lorazepam 1 MG tablet
1 mg PO HS
Patient Comments:
12/19/24: patient last filled #30 for 30 days on 11/23/24
diclofenac sodium 75 mg Tablet,Delayed Release (Dr/Ec)
75 mg PO BID
doxazosin 4 mg Tablet
8 mg PO HS
hydrocodone-acetaminophen 7.5-325 mg Tablet
1 tab PO Q6HPRN PRN (Reason: severe pain)
Patient Comments:
12/19/24: last filled #120 for 30 day supply on 11/04/24
therapeutic multivitamin Tablet
1 tab PO DAILY
nifedipine 30 mg Tablet Extended Release
30 mg PO DAILY
ferrous sulfate 325 mg (65 mg iron) Tablet
325 mg PO DAILY
lidocaine 5 % Adhesive Patch,Medicated
1 patch TOPICAL DAILYPRN PRN (Reason: back/elbow)
coenzyme Q10 [CoQ-10] 100 mg Capsule
100 mg PO HS
rosuvastatin 5 mg Tablet
5 mg PO HS
Discharge Orders:
Discharge Patient (As Directed); Ordered 12/20/24
Ordered By: Luma Ivan
Discharge Date and Time
Discharge Date/Time: 12/20/24 16:35
Print Language: BARBADIAN
[2024-12-20 14:41] VITALS: BP 145/65
--- NOTE | 2024-12-20 14:43 | CM ---
rf manager reviewed patient's chart and met with patient and patient lives with with spouse in a split level home, patient is independent with adl's and ambulation, patient has a cane that he does not use, plan is for discharge to home today no
needs.
PCP: Devante Reeves
Pharmacy: [facility]
Plan; Home when stable, no needs.
[2024-12-20 15:00] VITALS: BP 129/65
== END 2024-12-20 16:35 | disposition home or self-care (01) | DRG 390 ==
LOC: 4 WEST ACU 20:31
PROVIDERS: Physician Assistant Medical; ADMITTING PHYSICIAN Hospitalist; ATTENDING PHYSICIAN Internal Medicine; EMERGENCY PHYSICIAN Student in an Organized Health Care Education/Training Program; FAMILY PHYSICIAN Internal Medicine; OTHER PHYSICIAN Surgery
DX: K56.609 Unspecified intestinal obstruction, unspecified as to partial versus complete obstruction (principal); D72.829 Elevated white blood cell count, unspecified; I10 Essential (primary) hypertension; G89.29 Other chronic pain; Z96.653 Presence of artificial knee joint, bilateral; Z87.891 Personal history of nicotine dependence; Z79.82 Long term (current) use of aspirin; F41.9 Anxiety disorder, unspecified; Z79.899 Other long term (current) drug therapy; E78.00 Pure hypercholesterolemia, unspecified; H91.93 Unspecified hearing loss, bilateral; Z86.73 Personal history of transient ischemic attack (TIA), and cerebral infarction without residual deficits; I73.00 Raynaud's syndrome without gangrene; K21.9 Gastro-esophageal reflux disease without esophagitis; N40.0 Benign prostatic hyperplasia without lower urinary tract symptoms; Z90.49 Acquired absence of other specified parts of digestive tract; Z96.612 Presence of left artificial shoulder joint
CPT/HCPCS: 36415; 71250; 74018; 74177; 80048; 80053; 82607; 83605; 83690; 85025; 85027; 96360; 99285; Q9967

== ENCOUNTER → 2025-03-20 06:15 | Outpatient (REF) | payer MEDICARE, BC, SELFPAY ==
[2025-03-20 09:58] LABS: Hematocrit 37.2 % (39.0-52.0); Hemoglobin 12.3 g/dL (13.0-18.0); Mean Corp Hgb Conc. 33.1 g/dL (33.0-37.0); Mean Corpuscular Volume 93.0 fL (80.0-94.0); Nucleated Red Blood Cells % 0 % (-); Platelet Count 250 10^3/uL (130-400); Red Cell Dist. Width 12.7 % (11.5-14.5)
[2025-03-20 10:45] LABS: ALT (SGPT) 31 U/L (0-50); AST (SGOT) 31 U/L (17-59); Albumin 4.1 g/dl (3.5-5.0); Alkaline Phosphatase 70 U/L (38-126); Blood Urea Nitrogen 43 mg/dl (9-20); Calcium 9.4 mg/dl (8.4-10.2); Carbon Dioxide 26 mmol/L (22-30); Chloride 110 mmol/L (98-107); Glucose 91 mg/dl (70-99); HDL Cholesterol 59 mg/dl; Iron 75 ug/dl (49-181); LDL Cholesterol, Calculated 56 mg/dl; Potassium 5.1 mmol/L (3.5-5.1); Sodium 139 mmol/L (135-145); Total Protein 6.3 g/dl (6.3-8.2); Very Low Density Lipoprotein 10 mg/dl (0-30); eGFR > 60.00
[2025-03-20 10:54] LABS: Total Iron Binding Capacity 311 ug/dl (261-462)
[2025-03-20 11:19] LABS: Ferritin 83.2 ng/ml (17.9-464.0)
== END ==
LOC: HWLAB 06:15
PROVIDERS: ATTENDING PHYSICIAN Internal Medicine Cardiovascular Disease; FAMILY PHYSICIAN Internal Medicine
DX: I10 Essential (primary) hypertension (principal); E78.5 Hyperlipidemia, unspecified; Z86.2 Personal history of diseases of the blood and blood-forming organs and certain disorders involving the immune mechanism
CPT/HCPCS: 36415; 80053; 80061; 82728; 83540; 83550; 84443; 85025